=== PATIENT | female | born 1990 | race Caucasian/White ===

== ENCOUNTER 2017-12-15 18:28 | Emergency (ER) | payer OTHER ==
[2017-12-15] MEDS ORDERED: IBUPROFEN 400 MG TAB ONE (18:56)
--- NOTE | 2017-12-15 19:19 | EDPHYS ---
Physician Documentation [facility] Name: Mariluz Infante Age: 27 yrs Sex: Female : 1990 Arrival Date: 12/15/2017 Time: 18:31 Bed 15 Private MD: Frank Kaplan HPI: 12/15 18:53 This 27 yrs old Female presents to ER via Wheelchair with complaints of Foot cp Injury. 18:53 The patient presents with an injury, pain, that is acute. The complaints affect the cp dorsum of left foot. Context: resulted from foot being hyper extending after jumping in pool, the patient can partially bear weight, the patient is able to ambulate, with moderate difficulty. Onset: The symptoms/episode began/occurred today. Associated signs and symptoms: Pertinent negatives calf tenderness, numbness, tingling. 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 - Social history:: Smoking status: Patient uses tobacco products, smokes one pack cigarettes per day. ROS: 19:00 Constitutional: Negative for body aches, chills, fever, poor PO intake. cp 19:00 Eyes: Negative for injury, pain, redness, and discharge. cp 19:00 Neck: Negative for pain with movement, pain at rest, stiffness, tenderness, bony tenderness. 19:00 Back: Negative for pain at rest, pain with movement, radiated pain. 19:00 MS/extremity: Positive for injury or acute deformity, pain, tenderness, of the left foot, Negative for paresthesias. 19:00 Skin: Negative for cellulitis, rash. 19:00 All other systems are negative. Exam: 19:05 Constitutional: The patient appears in no acute distress, alert, awake, well developed, cp well nourished. 19:05 Head/Face: Normocephalic, atraumatic. cp 19:05 Eyes: Periorbital structures: appear normal, Conjunctiva: normal, no exudate, no injection, Lids and lashes: appear normal, bilaterally. 19:05 ENT: External ear(s): are unremarkable, Nose: is normal, Mouth: is normal. 19:05 Chest/axilla: Inspection: normal. 19:05 Cardiovascular: Rate: normal. 19:05 Respiratory: the patient does not display signs of respiratory distress, Respirations: normal, no use of accessory muscles, no retractions, no splinting, no tachypnea. 19:05 Abdomen/GI: Inspection: abdomen appears normal. 19:05 Musculoskeletal/extremity: Extremities: grossly normal except: noted in the left foot: pain, tenderness, There is no evidence of decreased ROM, deformity, Perfusion: the extremity is normally perfused throughout, Sensation intact. Vital Signs: 18:37 BP 125 / 81; Pulse 84; Resp 14; Temp 98.4; Pulse Ox 100% on R/A; Weight 70.31 kg; la1 Height 5 ft. 1 in. (154.94 cm); 19:30 BP 130 / 70; Pulse 80; Resp 18; Temp 97.8; Pulse Ox 99% ; ea 18:37 Body Mass Index 29.29 (70.31 kg, 154.94 cm) la1 Procedures: 20:05 Splinting: Splint applied to left foot using Orthoglass splint, applied by tech. cp Examined by me, post splint application: neurovascular intact, Patient tolerated well. 20:05 Crutch training provided to patient and/or family. Return demonstration given. cp MDM: 18:42 Patient medically screened. cp 19:17 Data reviewed: vital signs, nurses notes, radiologic studies, plain films. Test cp interpretation: by ED physician or midlevel provider: plain radiologic studies. Counseling: I had a detailed discussion with the patient and/or guardian regarding: the historical points, exam findings, and any diagnostic results supporting the discharge/admit diagnosis, radiology results, to return to the emergency department if symptoms worsen or persist or if there are any questions or concerns that arise at home. 12/15 18:37 Order name: Foot Left 3 View XRAY; Complete Time: 19:36 la1 12/15 19:37 Interpretation: Reviewed report. cp 12/15 19:08 Order name: Crutches; Complete Time: 19:33 cp 12/15 19:08 Order name: Post-op shoe; Complete Time: 19:33 cp 12/15 19:39 Order name: Splint: non-wt bearing posterior short leg; Complete Time: 20:05 cp Administered Medications: 19:03 Drug: Ibuprofen 800 mg Route: PO; ea 19:34 Follow up: Response: No adverse reaction ea 19:34 Follow up: Response: Pain is decreased ea Disposition: 12/15/17 19:40 Discharged to Home. Impression: Nondisplaced fracture of fourth metatarsal bone, left foot. - Condition is Stable. - Discharge Instructions: Metatarsal Fracture, Undisplaced. - Prescriptions for Ibuprofen 800 mg Oral Tablet - take 1 tablet by ORAL route every 8 hours As needed take with food; 30 tablet. Tylenol- Codeine #3 300-30 mg Oral Tablet - take 2 tablets by ORAL route every 6 hours As needed; 20 tablet. - Medication Reconciliation Form, Thank You Letter, Antibiotic Education, Prescription Opioid Use form. - Follow up: Vicente Mckee MD; When: 2 - 3 days; Reason: Recheck today's complaints. - Problem is new. - Symptoms have improved. Addendum: 12/17/2017 09:03 Co-signature as Attending Physician, Frank Toledo MD I agree with the assessment and c mata plan of care. Signatures: Dispatcher [employer] EDRI Frank Toledo MD MD cha Attema, Lee, RN RN la1 Frank Lincoln PA PA cp Antunez, Elena, RN MARIANNE dow
--- NOTE | 2017-12-15 19:19 | ER ---
Nurse's Notes [facility] Name: Mariluz Infante Age: 27 yrs Sex: Female : 1990 Arrival Date: 12/15/2017 Time: 18:31 Bed 15 Private MD: Diagnosis: Nondisplaced fracture of fourth metatarsal bone, left foot Presentation: 12/15 18:35 Presenting complaint: Patient states: I was getting in the pool and my left toes bent la1 up and back and now I am having a lot of pain in the area, CMS intact. Transition of care: patient was not received from another setting of care. Onset of symptoms was December 15, 2017. Initial Sepsis Screen: Does the patient meet any 2 criteria? No. Patient's initial sepsis screen is negative. Does the patient have a suspected source of infection? No. Patient's initial sepsis screen is negative. Care prior to arrival: None. 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 - Social history:: Smoking status: Patient uses tobacco products, smokes one pack cigarettes per day. Screenin:44 Abuse screen: Denies threats or abuse. Nutritional screening: No deficits noted. em Tuberculosis screening: No symptoms or risk factors identified. Fall Risk None identified. Assessment: 18:48 General: Appears in no apparent distress. uncomfortable, Behavior is calm, cooperative. em Pain: Complains of pain in dorsum of left foot Pain currently is 10 out of 10 on a pain scale. Pain began 2 hours ago. Neuro: Level of Consciousness is awake, alert, obeys commands, Oriented to person, place, time, situation. Cardiovascular: Capillary refill < 3 seconds Patient's skin is warm and dry. Respiratory: Airway is patent Respiratory effort is even, unlabored, Respiratory pattern is regular, symmetrical. GI: Abdomen is round. : No signs and/or symptoms were reported regarding the genitourinary system. EENT: No signs and/or symptoms were reported regarding the EENT system. Derm: Skin is intact, Skin is pink, warm \T\ dry. Musculoskeletal: Range of motion: intact in all extremities, Swelling present in dorsum of left foot. 19:14 Reassessment: Patient appears in no apparent distress at this time. I agree with above iw assessment by Oren Neri LVN. 19:15 General: Appears uncomfortable, Behavior is calm, cooperative. Pain: Complains of pain ea in left foot Pain currently is 9 out of 10 on a pain scale. Quality of pain is described as aching, Pain began 2 hours ago. Neuro: Level of Consciousness is awake, alert, obeys commands, Oriented to person, place, time, situation. Cardiovascular: Patient's skin is warm and dry. Respiratory: Airway is patent Respiratory effort is even, unlabored, Respiratory pattern is regular, symmetrical. GI: No signs and/or symptoms were reported involving the gastrointestinal system. : No signs and/or symptoms were reported regarding the genitourinary system. EENT: No signs and/or symptoms were reported regarding the EENT system. Derm: Skin is intact, Skin is pink, warm \T\ dry. Musculoskeletal: Swelling present in left foot. 19:55 Reassessment: Patient is alert, oriented x 3, equal unlabored respirations, skin ea warm/dry/pink. Discharge instructions given to patient, verbalized the understanding of instruction. Vital Signs: 18:37 BP 125 / 81; Pulse 84; Resp 14; Temp 98.4; Pulse Ox 100% on R/A; Weight 70.31 kg; la1 Height 5 ft. 1 in. (154.94 cm); 19:30 BP 130 / 70; Pulse 80; Resp 18; Temp 97.8; Pulse Ox 99% ; ea 18:37 Body Mass Index 29.29 (70.31 kg, 154.94 cm) la1 ED Course: 18:31 Patient arrived in ED. mr 18:36 Triage completed. la1 18:37 Arm band placed on left wrist. la1 18:42 Frank Lincoln PA is PHCP. cp 18:42 Frank Toledo MD is Attending Physician. cp 18:44 Oren Neri LVN is Primary Nurse. em 18:45 Patient has correct armband on for positive identification. Bed in low position. Call em light in reach. Adult w/ patient. 18:45 No provider procedures requiring assistance completed. em 19:11 X-ray completed. Portable x-ray completed in exam room. Patient tolerated procedure kp1 well. 19:12 Foot Left 3 View XRAY In Process Unspecified. EDMS 19:34 Patient did not have IV access during this emergency room visit. ea 19:39 Vicente cMkee MD is Referral Physician. cp Administered Medications: 19:03 Drug: Ibuprofen 800 mg Route: PO; ea 19:34 Follow up: Response: No adverse reaction ea 19:34 Follow up: Response: Pain is decreased ea Outcome: 19:18 Discharge ordered by MD. cp 19:40 Discharge ordered by MD. cp 20:11 Condition: improved ea 20:11 Discharge instructions given to patient, Instructed on discharge instructions, follow up and referral plans. medication usage, Demonstrated understanding of instructions, follow-up care, medications. 20:15 Patient left the ED. ea 20:15 Discharged to home with crutches, with friend. ea Signatures: Dispatcher [employer] [facility] Supriya Dyer mr Neri, Oren, LOCOMOTIVE ENGINEER ELECTRIC LOCOMOTIVE ENGINEER ELECTRIC Natasha Arevalo, RN Tyshawn Meléndez RN RN la1 Frank Lincoln, PA PA Peg Liang kp1 Maritza Weber RN RN ea
--- NOTE | 2017-12-15 19:25 | RAD REPORT ---
EXAM DESCRIPTION: RAD - Foot Left 3 View - 12/15/2017 7:12 pm CLINICAL HISTORY: Foot pain COMPARISON: None. FINDINGS: Hardware is noted in the distal first metatarsal. Lucency is seen the fourth metatarsal he ad, suspicious for nondisplaced fracture. No dislocation present. IMPRESSION: Findings suspicious for nondisplaced fracture fourth metatarsal head. Correlation with c linical point tenderness in this location is advised.
== END 2017-12-15 20:15 | disposition home or self-care (01) ==
LOC: ER 18:28
PROC: 2W3RX1Z Immobilization of Left Lower Leg using Splint (ICD-10-PCS; principal; 2017-12-15)
DX: S92.345A Nondisplaced fracture of fourth metatarsal bone, left foot, initial encounter for closed fracture (principal); W16.92XA Jumping or diving into unspecified water causing other injury, initial encounter; Y93.89 Activity, other specified; Y92.34 Swimming pool (public) as the place of occurrence of the external cause; Z88.8 Allergy status to other drugs, medicaments and biological substances; F17.210 Nicotine dependence, cigarettes, uncomplicated
CPT/HCPCS: 99283

== ENCOUNTER 2018-01-22 14:01 | Emergency (ER) | payer OTHER ==
[2018-01-22] MEDS ORDERED: ONDANSETRON 4 MG/2 ML VIAL ONE (14:44)
[2018-01-22] MEDS ORDERED: NA CHLORIDE 0.9% 1,000 ML ONE ×2 (14:44→17:02)
[2018-01-22 15:02] LABS: Absolute Lymphocytes (CBC) 0.4 K/uL (0.7-4.9); Absolute Monocytes 0.3 K/uL (0.1-1.3); Absolute Neutrophil 12.1 K/uL (1.8-8.0); Basophils % 0.2 % (0-1.3); Hematocrit 49.5 % (36.0-45.0); Lymphocytes % 2.9 % (15.3-44.8); MCH 27.7 pg (27.0-35.0); MCV 85.3 fL (80-100); MPV 8.3 fL (7.6-11.3); Monocytes % 2.6 % (3.3-12.3); RBC Red Blood Cell Count 5.81 M/uL (3.86-4.86)
[2018-01-22 15:10] LABS: Potassium 4.3 mEq/L (3.6-5.0)
[2018-01-22 15:16] LABS: Albumin 4.5 g/dL (3.2-5.5); Bilirubin Direct 0.1 mg/dL (0-0.2); Bilirubin Total 0.6 mg/dL (0.3-1.2); Protein, Total 8.2 g/dL (6.0-8.3)
[2018-01-22 15:32] LABS: Urine Bacteria NONE SEEN /HPF (<20); Urine Culture Reflex Order NOT NEEDED; Urine Mucus HEAVY /HPF (NONE SEEN); Urine RBC <5 /HPF (NONE SEEN)
[2018-01-22 15:35] LABS: Urine Blood TRACE (NEG); Urine Glucose NEGATIVE (NEG); Urine Protein 1+ (NEG); Urine Specific Gravity 1.025 (1.005-1.030)
[2018-01-22 15:42] LABS: Platelet Estimate ADEQ; Urine White Blood Cell Casts OK
[2018-01-22 15:43] LABS: Blood Morphology Comment NOT SEEN (NOT SEEN)
--- NOTE | 2018-01-22 16:08 | RAD REPORT ---
EXAM DESCRIPTION: CT - Abdomen Pelvis W Contrast - 01/22/2018 3:58 pm CLINICAL HISTORY: Abdominal pain with vomiting and diarrhea COMPARISON: January 2017 TECHNIQUE: Computed axial tomography of the abdomen pelvis was obtained. 100 cc Isovue-300 was admin istered intravenously. Oral contrast was not requested which limits evaluation of bowel. All CT scans are performed using dose optimization technique as appropriate and may include automated exposure control or mA/KV adjustment according to patient size. FINDINGS: The liver, spleen, pancreas, adrenal and kidneys appear unremarkable. There is no evidence of diverticulitis. The appendix is normal Fluid is present within nondilated large and small bowel IMPRESSION: Fluid is present within nondilated large and small bowel which may indicate an enteritis
[2018-01-22] MEDS ORDERED: MEPERIDINE HCL 25 MG/0.5 ML ONE (17:02)
--- NOTE | 2018-01-22 17:33 | EDPHYS ---
Physician Documentation [facility] Name: Mariluz Infante Age: 27 yrs Sex: Female : 1990 Arrival Date: 01/22/2018 Time: 14:05 Bed 26 Private MD: Out, [facility] ED Physician Renato Beltrán HPI: 01/22 14:43 This 27 yrs old Female presents to ER via Ambulatory with complaints of rn Nausea/Vomiting/Diarrhea, Dizziness. 14:43 The patient presents to the emergency department with nausea, vomiting, diarrhea. rn 14:45 Onset: The symptoms/episode began/occurred this morning. Possible causes: unknown. rn Associated signs and symptoms: Pertinent positives: abdominal pain, diarrhea, nausea, vomiting. Severity of symptoms: At their worst the symptoms were moderate in the emergency department the symptoms have improved. The patient has experienced similar episodes in the past. Reports mid abdominal pain, assoc with nausea/vomiting/diarrhea, began early this morning, no fever, has had hysterectomy due to endometriosis, feels lightheaded and unable to keep food down, hasn't eaten anything today. . 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 - Social history:: Smoking status: Patient uses tobacco products, smokes one-half pack cigarettes per day. - Ebola Screening: : No symptoms or risks identified at this time. - Family history:: not pertinent. - Hospitalizations: : No recent hospitalization is reported. ROS: 14:45 Constitutional: Negative for fever, chills, and weight loss, Eyes: Negative for injury, rn pain, redness, and discharge, Neck: Negative for injury, pain, and swelling, Cardiovascular: Negative for chest pain, palpitations, and edema, Respiratory: Negative for shortness of breath, cough, wheezing, and pleuritic chest pain, Abdomen/GI: + abd cramping/nausea/vomiting/diarrhea MS/Extremity: Negative for injury and deformity, Skin: Negative for injury, rash, and discoloration, Neuro: Negative for headache, numbness, tingling, and seizure. Exam: 14:45 Constitutional: This is a well developed, well nourished patient who is awake, alert, rn and in no acute distress. Head/Face: Normocephalic, atraumatic. Eyes: Pupils equal round and reactive to light, extra-ocular motions intact. Lids and lashes normal. Conjunctiva and sclera are non-icteric and not injected. Cornea within normal limits. Periorbital areas with no swelling, redness, or edema. ENT: dry MM Cardiovascular: tachycardic, regular Respiratory: Lungs have equal breath sounds bilaterally, clear to auscultation and percussion. No rales, rhonchi or wheezes noted. No increased work of breathing, no retractions or nasal flaring. Abdomen/GI: soft mild mid abd tenderness, no RLQ tenderness, no rebound/guarding Back: No spinal tenderness. No costovertebral tenderness. Full range of motion. MS/ Extremity: Pulses equal, no cyanosis. Neurovascular intact. Full, normal range of motion. Equal circumference. Neuro: Awake and alert, GCS 15, oriented to person, place, time, and situation. Cranial nerves II-XII grossly intact. Motor strength 5/5 in all extremities. Sensory grossly intact. Cerebellar exam normal. Normal gait. Vital Signs: 14:14 BP 110 / 68; Pulse 125; Resp 16 S; Temp 97.5(TE); Pulse Ox 97% on R/A; Weight 70.31 kg aa5 (R); Height 5 ft. 1 in. (154.94 cm) (R); Pain 7/10; 17:03 BP 132 / 75; Pulse 96; Resp 17; Pulse Ox 98% on R/A; rk2 17:30 BP 127 / 80; Pulse 93; Resp 17; Pulse Ox 100% on R/A; rk2 14:14 Body Mass Index 29.29 (70.31 kg, 154.94 cm) aa5 MDM: 14:21 Patient medically screened. rn 17:29 Differential diagnosis: Nonspecific abd pain, gastritis, viral gastroenteritis, rn gastroenteritis. Differential diagnosis: appendicitis, diverticulitis. Data reviewed: vital signs, nurses notes, lab test result(s), radiologic studies, CT scan, and as a result, I will discharge patient. Counseling: I had a detailed discussion with the patient and/or guardian regarding: the historical points, exam findings, and any diagnostic results supporting the discharge/admit diagnosis, lab results, radiology results, the need for outpatient follow up, to return to the emergency department if symptoms worsen or persist or if there are any questions or concerns that arise at home. Response to treatment: the patient's symptoms have mildly improved after treatment, and as a result, I will discharge patient. Special discussion: Based on the patient's Hx, exam, and Dx evaluation, there is no indication for emergent surgery or inpatient Tx. It is understood by the patient/guardian that if the Sx's persist or worsen they need to return immediately for re-evaluation. I discussed with the patient/guardian in detail that at this point there is no indication for admission to the hospital. It is understood, however, that if the symptoms persist or worsen the patient needs to return immediately for re-evaluation. 01/22 14:39 Order name: Amylase, Serum; Complete Time: 15:42 rn 01/22 14:39 Order name: Basic Metabolic Panel; Complete Time: 15:42 rn 01/22 14:39 Order name: CBC with Diff; Complete Time: 16:05 rn 01/22 14:39 Order name: Creatinine for Radiology; Complete Time: 15:42 rn 01/22 14:39 Order name: Hepatic Function; Complete Time: 15:42 rn 01/22 14:39 Order name: Lipase; Complete Time: 15:42 rn 01/22 14:39 Order name: Urine Microscopic Only; Complete Time: 15:42 rn 01/22 15:07 Order name: CBC Smear Scan; Complete Time: 16:05 EDMS 01/22 15:14 Order name: Urine Dipstick--Ancillary (enter results); Complete Time: 15:42 bd 01/22 15:14 Order name: Urine --Ancillary (enter results); Complete Time: 15:42 bd 01/22 15:43 Order name: CT Abd/Pelvis - W/Contrast: IV contrast only; Complete Time: 16:12 rn 01/22 14:39 Order name: Urine Test (obtain specimen); Complete Time: 15:12 rn 01/22 14:39 Order name: IV Saline Lock; Complete Time: 14:49 rn 01/22 14:39 Order name: Labs collected and sent; Complete Time: 14:49 rn 01/22 14:39 Order name: Urine Dipstick-Ancillary (obtain specimen); Complete Time: 15:12 rn Administered Medications: 14:48 Drug: Zofran 4 mg Route: IVP; Site: right antecubital; aj 17:52 Follow up: Response: No adverse reaction rk2 14:49 Drug: NS 0.9% 1000 ml Route: IV; Rate: 1000 ml; Site: right antecubital; aj 16:00 Follow up: Response: No adverse reaction; IV Status: Completed infusion rk2 17:06 Drug: Demerol 25 mg Route: IVP; Site: right antecubital; rk2 17:52 Follow up: Response: No adverse reaction rk2 17:06 Drug: NS 0.9% 1000 ml Route: IV; Rate: 1000 ml; Site: right antecubital; rk2 17:52 Follow up: Response: No adverse reaction; IV Status: Completed infusion rk2 Disposition: 01/22/18 17:32 Discharged to Home. Impression: Nausea and vomiting, Diarrhea, unspecified, Dehydration. - Condition is Stable. - Discharge Instructions: Dehydration, Adult, Diarrhea, Nausea and Vomiting, Viral Gastroenteritis. - Prescriptions for Zofran ODT 4 mg Oral tablet,disintegrating - place 1 tablet by TRANSLINGUAL route every 8-10 hours As needed; 20 tablet. - Medication Reconciliation Form, Thank You Letter, Antibiotic Education, Prescription Opioid Use form. - Follow up: Private Physician; When: As needed; Reason: Recheck today's complaints, Re-evaluation by your physician. - Problem is new. - Symptoms have improved. Signatures: Dispatcher [employer] EDMilagros March RN RN aj Nieto, Roman, MD MD rn Calderon, Audri, RN RN aa5 Lata Silveira RN RN rk2 Corrections: (The following items were deleted from the chart) 17:55 17:32 01/22/2018 17:32 Discharged to Home. Impression: Nausea and vomiting; Diarrhea, rk2 unspecified; Dehydration. Condition is Stable. Forms are Medication Reconciliation Form, Thank You Letter, Antibiotic Education, Prescription Opioid Use. Follow up: Private Physician; When: As needed; Reason: Recheck today's complaints, Re-evaluation by your physician. Problem is new. Symptoms have improved. rn
--- NOTE | 2018-01-22 17:33 | ER ---
Nurse's Notes [facility] Name: Mariluz Infante Age: 27 yrs Sex: Female : 1990 Arrival Date: 01/22/2018 Time: 14:05 Bed 26 Private MD: Out, [facility] Diagnosis: Nausea and vomiting;Diarrhea, unspecified;Dehydration Presentation: 01/22 14:12 Presenting complaint: Patient states: N/V/D, dizziness since this morning. Pt states aa5 "my whole body hurts". Transition of care: patient was not received from another setting of care. Onset of symptoms was January 22, 2018. Risk Assessment: Do you want to hurt yourself or someone else? Patient reports no desire to harm self or others. Initial Sepsis Screen: Does the patient meet any 2 criteria? No. Patient's initial sepsis screen is negative. Does the patient have a suspected source of infection? No. Patient's initial sepsis screen is negative. Care prior to arrival: None. 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 - Social history:: Smoking status: Patient uses tobacco products, smokes one-half pack cigarettes per day. - Ebola Screening: : No symptoms or risks identified at this time. - Family history:: not pertinent. - Hospitalizations: : No recent hospitalization is reported. Screenin:50 Abuse screen: Denies threats or abuse. Denies injuries from another. Nutritional aj screening: No deficits noted. Tuberculosis screening: No symptoms or risk factors identified. Fall Risk None identified. Assessment: 14:50 General: Appears in no apparent distress. comfortable, Behavior is calm, cooperative, aj appropriate for age. Pain: Denies pain. Neuro: Level of Consciousness is awake, alert, obeys commands, Oriented to person, place, time, situation, Appropriate for age. Respiratory: Airway is patent Trachea midline Respiratory effort is even, unlabored, Respiratory pattern is regular, symmetrical. GI: Abdomen is flat, non-distended, Reports nausea. Derm: Skin is intact, is healthy with good turgor, Skin is pink, warm \\T\\ dry. normal. Musculoskeletal: Reports Body aches. 17:05 Reassessment: Pt. resting in room \\T\\ this time, appears to be in no obvious distress... rk2 iv fluids infusing. Friend \\T\\ bedside. No other needs voiced \\T\\ this time. Vital Signs: 14:14 BP 110 / 68; Pulse 125; Resp 16 S; Temp 97.5(TE); Pulse Ox 97% on R/A; Weight 70.31 kg aa5 (R); Height 5 ft. 1 in. (154.94 cm) (R); Pain 7/10; 17:03 BP 132 / 75; Pulse 96; Resp 17; Pulse Ox 98% on R/A; rk2 17:30 BP 127 / 80; Pulse 93; Resp 17; Pulse Ox 100% on R/A; rk2 14:14 Body Mass Index 29.29 (70.31 kg, 154.94 cm) aa5 ED Course: 14:05 Patient arrived in ED. sb2 14:05 Out, [facility] is Private Physician. sb2 14:13 Triage completed. aa5 14:13 Arm band placed on. aa5 14:16 Milagros Khan, RN is Primary Nurse. aj 14:21 Renato Beltrán MD is Attending Physician. rn 14:50 Patient has correct armband on for positive identification. aj 14:50 No provider procedures requiring assistance completed. Inserted saline lock: 22 gauge aj in right antecubital area, using aseptic technique. Blood collected. 15:[address] via wheelchair. vm2 15:58 CT Abd/Pelvis - W/Contrast: IV contrast only In Process Unspecified. EDMS 16:00 CT completed. Patient tolerated procedure well. Patient moved back from [place]. nj 17:54 IV discontinued. rk2 Administered Medications: 14:48 Drug: Zofran 4 mg Route: IVP; Site: right antecubital; aj 17:52 Follow up: Response: No adverse reaction rk2 14:49 Drug: NS 0.9% 1000 ml Route: IV; Rate: 1000 ml; Site: right antecubital; aj 16:00 Follow up: Response: No adverse reaction; IV Status: Completed infusion rk2 17:06 Drug: Demerol 25 mg Route: IVP; Site: right antecubital; rk2 17:52 Follow up: Response: No adverse reaction rk2 17:06 Drug: NS 0.9% 1000 ml Route: IV; Rate: 1000 ml; Site: right antecubital; rk2 17:52 Follow up: Response: No adverse reaction; IV Status: Completed infusion rk2 Outcome: 17:32 Discharge ordered by . rn 17:54 Discharged to home ambulatory, with friend. rk2 17:54 Condition: good 17:54 Discharge instructions given to patient, Prescriptions given X 1. 17:55 Patient left the ED. rk2 Signatures: Dispatcher [employer] EDMilagros March RN RN Renato Bowsre MD MD rn Calderon, Audri, RN RN Sacha Tuttle Victoria vm2 Lata Silveira RN RN rk2 Sally Aguilar sb2
== END 2018-01-22 17:55 | disposition home or self-care (01) ==
LOC: ER 14:01
DX: E86.0 Dehydration (principal); R19.7 Diarrhea, unspecified; F17.210 Nicotine dependence, cigarettes, uncomplicated; Z88.8 Allergy status to other drugs, medicaments and biological substances
CPT/HCPCS: 36415; 74177; 80048; 80076; 81003; 81015; 81025; 82150; 83690; 85025; 96361; 96374; 96375; 99284; J2175; J2405; J7030; Q9967

== ENCOUNTER 2018-03-08 16:34 | Emergency (ER) | payer OTHER, SELFPAY ==
[2018-03-08] MEDS ORDERED: NA CHLORIDE 0.9% 1,000 ML ONE (17:48)
[2018-03-08 17:54] LABS: Absolute Lymphocytes (CBC) 3.5 K/uL (0.7-4.9); Absolute Monocytes 0.5 K/uL (0.1-1.3); Absolute Neutrophil 5.7 K/uL (1.8-8.0); Eosinophils % 1.2 % (0-4.4); Hematocrit 41.9 % (36.0-45.0); MCH 28.8 pg (27.0-35.0); MCV 84.5 fL (80-100); MPV 8.3 fL (7.6-11.3); Monocytes % 5.5 % (3.3-12.3); RBC Red Blood Cell Count 4.95 M/uL (3.86-4.86)
--- NOTE | 2018-03-08 17:58 | RAD REPORT ---
EXAM DESCRIPTION: CT - Head Brain Wo Cont - 03/08/2018 5:46 pm CLINICAL HISTORY: Syncope, hypotension, dizziness COMPARISON: CT head September 2017 TECHNIQUE: Axial 5 mm thick images of the head were obtained without IV contrast. All CT scans are performed using dose optimization technique as appropriate and may include automated exposure control or mA/KV adjustment according to patient size. FINDINGS: No intracranial hemorrhage, mass, edema or shift of mid-line structures. No acute infarcti on changes seen. No abnormal extra-axial fluid collections. Ventricles are normal. Intracranial findi ngs are not clearly different from the comparison. Mastoid air cells and visualized portions of the paranasal sinuses are clear. No acute bony findings. IMPRESSION: Negative noncontrast CT head for acute finding. No significant change from September 2017.
[2018-03-08 18:21] LABS: Magnesium 2.1 mg/dL (1.8-2.4); Potassium 3.5 mmol/L (3.5-5.1); Thyroid Stimulating Hormone 1.51 uIU/mL (0.36-3.74)
--- NOTE | 2018-03-08 18:47 | EKG ---
Test Date: 2018-03-08 Test Time: 17:21:08 Inclusion Special Education Teacher: RENA MEASUREMENT RESULTS: Intervals: Rate: 67 [place]: 148 QRSD: 84 QT: 388 QTc: 409 [place]: P: 23 [place]: 148 QRS: 30 T: 25 INTERPRETIVE STATEMENTS: Normal sinus rhythm with sinus arrhythmia Normal ECG No previous ECG available for comparison Electronically Signed On 03-08-18 18:47:01 CDT by Abelino Hanson
--- NOTE | 2018-03-08 18:52 | RAD REPORT ---
EXAM DESCRIPTION: RAD - Chest Single View - 03/08/2018 5:51 pm CLINICAL HISTORY: Chest pain COMPARISON: None. TECHNIQUE: AP portable chest image was obtained 1737 hours . FINDINGS: Lungs are clear. Heart and vasculature are normal. No measurable pleural effusion and no p neumothorax. No gross bony abnormality seen. No acute aortic findings suspected. IMPRESSION: No acute cardiopulmonary process.
--- NOTE | 2018-03-08 18:57 | ER ---
Nurse's Notes [facility] Name: Mariluz Infante Age: 27 yrs Sex: Female : 1990 Arrival Date: 03/08/2018 Time: 16:37 Bed 5 Private MD: Out, [facility] Diagnosis: Palpitations;Syncope and collapse;Vasovagal reaction Presentation: 03/08 17:07 Presenting complaint: Patient states: I get very lightheaded and dizzy when I stand and jl7 walk. My BP was 104/42 at the doctor and they had me sit a while then re-checked it and it was 108/70. At home I laid down for a bit and then got up and passed out when I stood up. When I stand up it's like I can feel my BP drop. Transition of care: patient was not received from another setting of care. Onset of symptoms was March 08, 2018. Risk Assessment: Do you want to hurt yourself or someone else? Patient reports no desire to harm self or others. Initial Sepsis Screen: Does the patient meet any 2 criteria? No. Patient's initial sepsis screen is negative. Does the patient have a suspected source of infection? No. Patient's initial sepsis screen is negative. Care prior to arrival: None. 17:07 Method Of Arrival: Ambulatory jl7 17:07 Acuity: ROGELIO 3 jl7 17:13 Presenting complaint: Patient states: Pt also reports palpitations since last night and jl7 "I have to cough to get them to go away.". Triage Assessment: 17:13 General: Appears in no apparent distress. uncomfortable, Behavior is calm, cooperative, jl7 appropriate for age. Pain: Denies pain. 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 - Social history:: Smoking status: Patient uses tobacco products, smokes one-half pack cigarettes per day. - Ebola Screening: : No symptoms or risks identified at this time. - Family history:: not pertinent. - Hospitalizations: : No recent hospitalization is reported. Screenin:01 Abuse screen: Denies threats or abuse. Nutritional screening: No deficits noted. tw2 Tuberculosis screening: No symptoms or risk factors identified. Fall Risk None identified. Assessment: 17:30 General: Appears in no apparent distress. Behavior is calm, cooperative. Pain:. Neuro: hb Level of Consciousness is awake, alert, obeys commands, Oriented to person, place, time, situation, Pupils are PERRLA. Cardiovascular: Heart tones S1 S2 present Capillary refill < 3 seconds Patient's skin is warm and dry. Respiratory: Airway is patent Trachea midline Respiratory effort is even, unlabored, Respiratory pattern is regular, symmetrical, Breath sounds are clear bilaterally. GI: No signs and/or symptoms were reported involving the gastrointestinal system. : No signs and/or symptoms were reported regarding the genitourinary system. EENT: No signs and/or symptoms were reported regarding the EENT system. Derm: No signs and/or symptoms reported regarding the dermatologic system. Skin is intact, is healthy with good turgor, Skin is pink, warm \\T\\ dry. Musculoskeletal: No signs and/or symptoms reported regarding the musculoskeletal system. 18:00 Reassessment: Patient appears in no apparent distress at this time. No changes from tw2 previously documented assessment. Patient and/or family updated on plan of care and expected duration. Pain level reassessed. Patient is alert, oriented x 3, equal unlabored respirations, skin warm/dry/pink. 18:34 Reassessment: Patient appears in no apparent distress at this time. No changes from hb previously documented assessment. Patient and/or family updated on plan of care and expected duration. Pain level reassessed. Patient is alert, oriented x 3, equal unlabored respirations, skin warm/dry/pink. 18:59 Reassessment: RECD REPORT FROM NOLVIA LOPES. 27YO WF P/W PALPITATIONS AND ANXIETY. D/C bp PENDING COMPLETION OF IVF. 19:19 Reassessment: PT D/C HOME AMBULATORY, DX WITH PALPITATIONS AND VASOVAGAL RESPONSE. bp Vital Signs: 17:13 BP 106 / 76; Pulse 86; Resp 16 S; Temp 99(O); Pulse Ox 97% on R/A; Weight 69.85 kg (R); jl7 Height 5 ft. 1 in. (154.94 cm) (R); Pain 0/10; 17:58 BP 117 / 70 Standing; Pulse 92; Resp 24; Pulse Ox 99% on R/A; tw2 17:58 BP 116 / 70 Sitting; Pulse 63; Resp 17; tw2 17:58 BP 116 / 70 Supine; Pulse 63; tw2 18:34 BP 98 / 58; Pulse 66; Resp 15; Pulse Ox 100% on R/A; hb 19:00 BP 103 / 55; Pulse 65; Resp 17; Pulse Ox 99% on R/A; tl2 19:20 BP 118 / 74; Pulse 63; Resp 20; Pulse Ox 98% ; bp 17:13 Body Mass Index 29.10 (69.85 kg, 154.94 cm) jl7 ED Course: 16:37 Patient arrived in ED. mr 16:37 Out, [facility] is Private Physician. mr 17:11 Triage completed. jl7 17:13 Arm band placed on left wrist. jl7 17:20 Placed in gown. Bed in low position. residential monitor on. Pulse ox on. NIBP on. tw2 17:24 Renato Beltrán MD is Attending Physician. rn 17:28 EKG done, by pharm tech. reviewed by Renato Beltrán MD. sm3 17:31 Initial lab(s) drawn, by ny. Inserted saline lock: 22 gauge in right antecubital area, jb1 using aseptic technique. Blood collected. 17:40 CT completed. Patient tolerated procedure well. Patient moved to CT. Patient moved back mn from CT. 17:46 Nolvia Leonard, RN is Primary Nurse. hb 17:47 CT Head Brain wo Cont In Process Unspecified. EDMS 17:50 X-ray completed. Patient tolerated procedure well. bb2 17:51 XRAY Chest (1 view) In Process Unspecified. EDMS 17:51 Patient moved back from radiology. bb2 18:01 No provider procedures requiring assistance completed. tw2 19:01 Report given to MARIANNE Hayden , awaiting completion of IV fluids prior to discharge. tw2 19:19 IV discontinued, intact, bleeding controlled, No redness/swelling at site. Pressure bp dressing applied. Administered Medications: 18:02 Drug: NS 0.9% 1000 ml Route: IV; Rate: 1000 ml; Site: right antecubital; tw2 19:20 Follow up: IV Status: Completed infusion; IV Intake: 1000ml bp Intake: 19:20 IV: 1000ml; Total: 1000ml. bp Outcome: 18:56 Discharge ordered by MD. rn 19:20 Discharged to home ambulatory. bp 19:20 Condition: stable 19:20 Discharge instructions given to patient, Instructed on discharge instructions, follow up and referral plans. Demonstrated understanding of instructions, follow-up care. 19:21 Patient left the ED. bp Signatures: Dispatcher [employer] EDMS Pete Pena jb1 Supriya Dyer Roman, MD MD rn Baxter, Heather, RN RN Tracey Tirado RN RN tw2 Nai Wong RN RN tl2 Sacha Woodard Jahala RN RN jl7 Sohail Curtis RN RN [facility] CenterJoellen 2 Harriett Hooks 3
--- NOTE | 2018-03-08 18:57 | EDPHYS ---
Physician Documentation [facility] Name: Mariluz Infante Age: 27 yrs Sex: Female : 1990 Arrival Date: 03/08/2018 Time: 16:37 Bed 5 Private MD: Out, [facility] ED Physician Renato Beltrán HPI: 03/08 17:55 This 27 yrs old Female presents to ER via Ambulatory with complaints of rn Palpitations, Passed Out Prior To Arrival. 17:56 The patient has experienced syncope. Onset: The symptoms/episode began/occurred just rn prior to arrival. Duration: This was a single episode. Associated signs and symptoms: Pertinent positives: lightheadedness, palpitations. Current symptoms: Currently, the patient is not experiencing any symptoms. The patient has not experienced similar symptoms in the past. The patient has been recently seen by a physician:. Seen today at [place] [facility], jeannette dher blood pressure was low, improved with rest, sent her home, reports palpitations since last night, intermittent, last for about 1 minute, continued to happen today, at home, felt nausea, then got lightheaded and passed out, single episode, currently asymptomatic. . 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 - Social history:: Smoking status: Patient uses tobacco products, smokes one-half pack cigarettes per day. - Ebola Screening: : No symptoms or risks identified at this time. - Family history:: not pertinent. - Hospitalizations: : No recent hospitalization is reported. ROS: 17:56 Constitutional: Negative for fever, chills, and weight loss, Eyes: Negative for injury, rn pain, redness, and discharge, Neck: Negative for injury, pain, and swelling, Cardiovascular: Negative for edema, Respiratory: Negative for shortness of breath, cough, wheezing, and pleuritic chest pain, Abdomen/GI: Negative for abdominal pain, nausea, vomiting, diarrhea, and constipation, MS/Extremity: Negative for injury and deformity, Skin: Negative for injury, rash, and discoloration, Neuro: Negative for headache, weakness, numbness, tingling, and seizure. Exam: 17:56 Constitutional: This is a well developed, well nourished patient who is awake, alert, rn and in no acute distress. Head/Face: Normocephalic, atraumatic. Eyes: Pupils equal round and reactive to light, extra-ocular motions intact. Lids and lashes normal. Conjunctiva and sclera are non-icteric and not injected. Cornea within normal limits. Periorbital areas with no swelling, redness, or edema. ENT: MMM Neck: Trachea midline, no thyromegaly or masses palpated, and no cervical lymphadenopathy. Supple, full range of motion without nuchal rigidity, or vertebral point tenderness. No Meningismus. Cardiovascular: Regular rate and rhythm with a normal S1 and S2. No gallops, murmurs, or rubs. Normal PMI, no JVD. No pulse deficits. Respiratory: Lungs have equal breath sounds bilaterally, clear to auscultation and percussion. No rales, rhonchi or wheezes noted. No increased work of breathing, no retractions or nasal flaring. Abdomen/GI: Soft, non-tender, with normal bowel sounds. No distension or tympany. No guarding or rebound. No evidence of tenderness throughout. Skin: Warm, dry with normal turgor. Normal color with no rashes, no lesions, and no evidence of cellulitis. MS/ Extremity: Pulses equal, no cyanosis. Neurovascular intact. Full, normal range of motion. Equal circumference. Neuro: Awake and alert, GCS 15, oriented to person, place, time, and situation. Cranial nerves II-XII grossly intact. Motor strength 5/5 in all extremities. Sensory grossly intact. Cerebellar exam normal. Normal gait. Vital Signs: 17:13 BP 106 / 76; Pulse 86; Resp 16 S; Temp 99(O); Pulse Ox 97% on R/A; Weight 69.85 kg (R); jl7 Height 5 ft. 1 in. (154.94 cm) (R); Pain 0/10; 17:58 BP 117 / 70 Standing; Pulse 92; Resp 24; Pulse Ox 99% on R/A; tw2 17:58 BP 116 / 70 Sitting; Pulse 63; Resp 17; tw2 17:58 BP 116 / 70 Supine; Pulse 63; tw2 18:34 BP 98 / 58; Pulse 66; Resp 15; Pulse Ox 100% on R/A; hb 19:00 BP 103 / 55; Pulse 65; Resp 17; Pulse Ox 99% on R/A; tl2 19:20 BP 118 / 74; Pulse 63; Resp 20; Pulse Ox 98% ; bp 17:13 Body Mass Index 29.10 (69.85 kg, 154.94 cm) jl7 MDM: 17:24 Patient medically screened. rn 18:55 Differential Diagnosis: cardiac arrhythmia, idiopathic syncope, vasovagal episode. Data rn reviewed: vital signs, nurses notes, lab test result(s), EKG, radiologic studies, and as a result, I will discharge patient. Counseling: I had a detailed discussion with the patient and/or guardian regarding: the historical points, exam findings, and any diagnostic results supporting the discharge/admit diagnosis, lab results, radiology results, the need for outpatient follow up, to return to the emergency department if symptoms worsen or persist or if there are any questions or concerns that arise at home. Response to treatment: the patient's condition has returned to base line, the patient is now symptom free, and as a result, I will discharge patient. Special discussion: I discussed with the patient/guardian in detail that at this point there is no indication for admission to the hospital. It is understood, however, that if the symptoms persist or worsen the patient needs to return immediately for re-evaluation. Based on the history and exam findings, there is no indication for further emergent testing or inpatient evaluation. I discussed with the patient/guardian the need to see the pressroom worker for further evaluation of the symptoms. I discussed with the patient/guardian the need to see the primary care provider for further evaluation of the symptoms. ED course: Will dc home, normal w/u here, improved symptoms, intermittentsymptoms, recommend pcp f/u, possible holter, and cardiology if continues, return precautions given.. 03/08 17:35 Order name: Basic Metabolic Panel; Complete Time: 18:32 rn 07/20 17:35 Order name: CBC with Diff; Complete Time: 18:32 rn 03/08 17:35 Order name: Magnesium; Complete Time: 18:32 rn 03/08 17:35 Order name: Troponin (emerg Dept Use Only); Complete Time: 18:32 rn 03/08 17:35 Order name: TSH; Complete Time: 18:32 rn 03/08 17:35 Order name: T4 Free; Complete Time: 18:32 rn 03/08 17:35 Order name: CT Head Brain wo Cont; Complete Time: 18:32 rn 03/08 17:35 Order name: EKG; Complete Time: 17:36 rn 03/08 17:35 Order name: Cardiac monitoring; Complete Time: 17:44 rn 03/08 17:35 Order name: EKG - Nurse/Tech; Complete Time: 18:03 03/08 17:35 Order name: XRAY Chest (1 view); Complete Time: 18:55 03/08 19:17 Order name: Urine Dipstick--Ancillary (enter results) [facility] 03/08 19:17 Order name: Urine --Ancillary (enter results) [facility] 03/08 17:35 Order name: IV Saline Lock; Complete Time: 17:44 rn 03/08 17:35 Order name: Labs collected and sent; Complete Time: 17:45 03/08 17:35 Order name: NPO; Complete Time: 17:45 03/08 17:35 Order name: O2 Per Protocol; Complete Time: 17:45 03/08 17:35 Order name: O2 Sat Monitoring; Complete Time: 17:45 03/08 17:35 Order name: Urine Dipstick-Ancillary (obtain specimen); Complete Time: 18:45 03/08 17:35 Order name: Orthostatics; Complete Time: 18:02 rn Administered Medications: 18:02 Drug: NS 0.9% 1000 ml Route: IV; Rate: 1000 ml; Site: right antecubital; tw2 19:20 Follow up: IV Status: Completed infusion; IV Intake: 1000ml bp Disposition: 03/08/18 18:56 Discharged to Home. Impression: Palpitations, Syncope and collapse, Vasovagal reaction. - Condition is Stable. - Discharge Instructions: Palpitations, Syncope, Vasovagal Syncope, Adult. - Medication Reconciliation Form, Thank You Letter, Antibiotic Education, Prescription Opioid Use form. - Follow up: Private Physician; When: As needed; Reason: Recheck today's complaints, Re-evaluation by your physician. - Problem is new. - Symptoms have improved. Signatures: Dispatcher [employer] EDMS Renato Beltrán MD MD rn Wise, Tara, RN RN tw2 Natividad Ly RN RN jl7 Sohail Curtis RN RN bp Corrections: (The following items were deleted from the chart) 19:21 18:56 03/08/2018 18:56 Discharged to Home. Impression: Palpitations; Syncope and bp collapse; Vasovagal reaction. Condition is Stable. Forms are Medication Reconciliation Form, Thank You Letter, Antibiotic Education, Prescription Opioid Use. Follow up: Private Physician; When: As needed; Reason: Recheck today's complaints, Re-evaluation by your physician. Problem is new. Symptoms have improved. rn
[2018-03-08 19:20] LABS: Urine Blood NEGATIVE (NEG); Urine Glucose NEGATIVE (NEG); Urine Protein NEGATIVE (NEG)
== END 2018-03-08 19:21 | disposition home or self-care (01) ==
LOC: ER 16:34
DX: R55 Syncope and collapse (principal); F32.9 Major depressive disorder, single episode, unspecified; F43.10 Post-traumatic stress disorder, unspecified; F17.210 Nicotine dependence, cigarettes, uncomplicated; Z88.8 Allergy status to other drugs, medicaments and biological substances
CPT/HCPCS: 36415; 70450; 71045; 80048; 81003; 81025; 83735; 84439; 84443; 84484; 85025; 93005; 96360; 99285; J7030

== ENCOUNTER 2018-06-28 12:21 | Emergency (ER) | payer OTHER ==
--- NOTE | 2018-06-28 15:02 | EDPHYS ---
Physician Documentation [facility] Name: Mariluz Infante Age: 28 yrs Sex: Female : 1990 Arrival Date: 06/28/2018 Time: 12:23 Bed 12 Private MD: Out, [facility] ED Physician Frank Toledo HPI: 06/28 14:56 This 28 yrs old Female presents to ER via Ambulatory with complaints of jr8 Insect Bite, Headache, Nausea. 14:56 Patient felt a bite on right elbow last night. Saw small pustule with redness last jr8 night. Today turned into blister. Had mild headache. Denies fever or other lesions to body . Severity of symptoms: At their worst the symptoms were mild in the emergency department the symptoms are unchanged. The patient has not experienced similar symptoms in the past. The patient has not recently seen a physician. 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 - Social history:: Smoking status: Patient uses tobacco products, smokes one-half pack cigarettes per day. - Ebola Screening: : Patient negative for fever greater than or equal to 101.5 degrees Fahrenheit, and additional compatible Ebola Virus Disease symptoms Patient denies exposure to infectious person Patient denies travel to an Ebola-affected area in the 21 days before illness onset No symptoms or risks identified at this time. ROS: 14:56 Constitutional: Negative for fever, chills, and weight loss. jr8 14:56 Skin: Positive for lesions. 14:56 Neuro: Positive for headache, Negative for altered mental status, dizziness, syncope. 14:56 All other systems are negative. Exam: 14:56 Eyes: Pupils equal round and reactive to light, extra-ocular motions intact. Lids and jr8 lashes normal. Conjunctiva and sclera are non-icteric and not injected. Cornea within normal limits. Periorbital areas with no swelling, redness, or edema. ENT: Nares patent. No nasal discharge, no septal abnormalities noted. Tympanic membranes are normal and external auditory canals are clear. Oropharynx with no redness, swelling, or masses, exudates, or evidence of obstruction, uvula midline. Mucous membranes moist. Neck: Trachea midline, no thyromegaly or masses palpated, and no cervical lymphadenopathy. Supple, full range of motion without nuchal rigidity, or vertebral point tenderness. No Meningismus. Cardiovascular: Regular rate and rhythm with a normal S1 and S2. No gallops, murmurs, or rubs. Normal PMI, no JVD. No pulse deficits. Respiratory: Lungs have equal breath sounds bilaterally, clear to auscultation and percussion. No rales, rhonchi or wheezes noted. No increased work of breathing, no retractions or nasal flaring. Abdomen/GI: Soft, non-tender, with normal bowel sounds. No distension or tympany. No guarding or rebound. No evidence of tenderness throughout. Back: No spinal tenderness. No costovertebral tenderness. Full range of motion. MS/ Extremity: Pulses equal, no cyanosis. Neurovascular intact. Full, normal range of motion. Neuro: Awake and alert, GCS 15, oriented to person, place, time, and situation. Cranial nerves II-XII grossly intact. Motor strength 5/5 in all extremities. Sensory grossly intact. Cerebellar exam normal. Normal gait. 14:56 Skin: small 1.5 cm red circular lesion to right forearm near elbow. In the center is small bullous. No streaking or surrounding cellulitis. No tenderness. No other rashes or lesion appreciated . Vital Signs: 12:30 BP 123 / 79; Pulse 81; Resp 20; Temp 99.0; Pulse Ox 99% on R/A; Weight 72.57 kg; Height aj 5 ft. 1 in. (154.94 cm); 14:23 BP 120 / 80; Pulse 79; Resp 18; Temp 98.9; Pulse Ox 100% on R/A; Pain 5/10; dm5 12:30 Body Mass Index 30.23 (72.57 kg, 154.94 cm) aj MDM: 14:35 Patient medically screened. jr8 14:56 Data reviewed: vital signs, nurses notes, and as a result, I will discharge patient. jr8 Data interpreted: Pulse oximetry: on room air is 100 %. Interpretation: normal. Counseling: I had a detailed discussion with the patient and/or guardian regarding: the historical points, exam findings, and any diagnostic results supporting the discharge/admit diagnosis, the need for outpatient follow up, a family practitioner, to return to the emergency department if symptoms worsen or persist or if there are any questions or concerns that arise at home. Administered Medications: No medications were administered Disposition: 06/28/18 15:00 Discharged to Home. Impression: Local infection of the skin and subcutaneous tissue, unspecified. - Condition is Stable. - Discharge Instructions: Rash, Cellulitis, Adult, [id number]. - Prescriptions for Bactroban 2 % Topical Ointment - Apply to affected area 1 application by TOPICAL route every 12 hours; 30 gram. - Medication Reconciliation Form, Thank You Letter, Antibiotic Education, Prescription Opioid Use form. - Follow up: Private Physician; When: As needed; Reason: Recheck today's complaints, Continuance of care, Re-evaluation by your physician. - Problem is new. - Symptoms have improved. Addendum: 07/01/2018 06:46 Co-signature as Attending Physician, Frank Toledo MD I agree with the assessment and c mata plan of care. Signatures: Kendra Maguire, Milagros Nichole RN, RN RN aj Anderson, Corey, MD MD cha Roszak, Josh, PA PA jr8 Corrections: (The following items were deleted from the chart) 06/28 15:14 15:00 06/28/2018 15:00 Discharged to Home. Impression: Local infection of the skin and dm5 subcutaneous tissue, unspecified. Condition is Stable. Forms are Medication Reconciliation Form, Thank You Letter, Antibiotic Education, Prescription Opioid Use. Follow up: Private Physician; When: As needed; Reason: Recheck today's complaints, Continuance of care, Re-evaluation by your physician. Problem is new. Symptoms have improved. jr8
--- NOTE | 2018-06-28 15:02 | ER ---
Nurse's Notes [facility] Name: Mariluz Infante Age: 28 yrs Sex: Female : 1990 Arrival Date: 06/28/2018 Time: 12:23 Bed 12 Private MD: Out, [facility] Diagnosis: Local infection of the skin and subcutaneous tissue, unspecified Presentation: 06/28 12:28 Presenting complaint: Patient states: Area of redness to posterior right elbow since aj this AM. Reports nausea and headache as well. Transition of care: patient was not received from another setting of care. Onset of symptoms was June 28, 2018. Risk Assessment: Do you want to hurt yourself or someone else? Patient reports no desire to harm self or others. Initial Sepsis Screen: Does the patient meet any 2 criteria? No. Patient's initial sepsis screen is negative. Does the patient have a suspected source of infection? No. Patient's initial sepsis screen is negative. Note Patient presents to ER with minor child. Care prior to arrival: None. 12:28 Method Of Arrival: Ambulatory 12:28 Acuity: ROGELIO 5 aj Triage Assessment: 12:30 Bite description: bite sustained to right elbow by. General: Appears in no apparent aj distress. comfortable, Behavior is calm, cooperative, appropriate for age. Pain: Complains of pain in right elbow. Neuro: Level of Consciousness is awake, alert, obeys commands, Oriented to person, place, time, situation, Appropriate for age. Respiratory: Airway is patent Respiratory effort is even, unlabored, Respiratory pattern is regular, symmetrical. Derm: Skin is intact, is healthy with good turgor, Skin is pink, warm \T\ dry. normal. Injury Description: area of redness to posterior right elbow. 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 - Social history:: Smoking status: Patient uses tobacco products, smokes one-half pack cigarettes per day. - Ebola Screening: : Patient negative for fever greater than or equal to 101.5 degrees Fahrenheit, and additional compatible Ebola Virus Disease symptoms Patient denies exposure to infectious person Patient denies travel to an Ebola-affected area in the 21 days before illness onset No symptoms or risks identified at this time. Screenin:23 Abuse screen: Denies threats or abuse. Denies injuries from another. Nutritional dm5 screening: No deficits noted. Tuberculosis screening: No symptoms or risk factors identified. Fall Risk None identified. Assessment: 14:23 Reassessment: Patient appears in no apparent distress at this time. Patient and/or dm5 family updated on plan of care and expected duration. Pain level reassessed. Patient is alert, oriented x 3, equal unlabored respirations, skin warm/dry/pink. General: Appears in no apparent distress. Behavior is calm, cooperative. Pain: Complains of pain in right elbow Pain currently is 5 out of 10 on a pain scale. Quality of pain is described as burning, itching Pain began 1 day ago. Is continuous. Neuro: Level of Consciousness is awake, alert, obeys commands, Oriented to person, place, time. Cardiovascular: No deficits noted. Respiratory: No deficits noted. GI: No deficits noted. : No deficits noted. Derm: Skin is pink, warm \T\ dry. Abscess located on right elbow is dime sized, is red, is raised, blister type area in the middle of the area. Vital Signs: 12:30 BP 123 / 79; Pulse 81; Resp 20; Temp 99.0; Pulse Ox 99% on R/A; Weight 72.57 kg; Height aj 5 ft. 1 in. (154.94 cm); 14:23 BP 120 / 80; Pulse 79; Resp 18; Temp 98.9; Pulse Ox 100% on R/A; Pain 5/10; dm5 12:30 Body Mass Index 30.23 (72.57 kg, 154.94 cm) aj ED Course: 12:23 Patient arrived in ED. mr 12:24 Out, of [facility] is Private Physician. mr 12:30 Triage completed. aj 12:30 Arm band placed on left wrist. Patient placed in waiting room, Patient notified of wait aj time. 14:22 Kendra Maguire, RN is Primary Nurse. dm5 14:23 Patient has correct armband on for positive identification. Call light in reach. dm5 14:31 Deyvi Shaikh PA is PHCP. jr8 14:31 Frank Toledo MD is Attending Physician. jr8 Administered Medications: No medications were administered Outcome: 15:00 Discharge ordered by . jr8 15:14 Patient left the ED. dm5 Signatures: Kendra Maguire, MARIANNE RN Milagros Anguiano RN RN aj Rivera, Mary mr Deyvi Shaikh PA PA jrSamanta
== END 2018-06-28 15:14 | disposition home or self-care (01) ==
LOC: ER 12:21
DX: L08.9 Local infection of the skin and subcutaneous tissue, unspecified (principal); F17.210 Nicotine dependence, cigarettes, uncomplicated; F32.9 Major depressive disorder, single episode, unspecified; F41.9 Anxiety disorder, unspecified; F43.10 Post-traumatic stress disorder, unspecified; Z88.8 Allergy status to other drugs, medicaments and biological substances
CPT/HCPCS: 99281

== ENCOUNTER 2018-08-11 10:19 | Emergency (ER) | payer OTHER ==
[2018-08-11] MEDS ORDERED: DIPHENHYDRAMINE 50 MG/ML VIAL ONE (13:49)
[2018-08-11] MEDS ORDERED: METOCLOPRAMIDE 10 MG/2mL INJ ONE (13:49)
[2018-08-11] MEDS ORDERED: NA CHLORIDE 0.9% 1,000 ML ONE (13:49)
--- NOTE | 2018-08-11 14:08 | ER ---
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 Transition of care: patient was not received from another setting of care. Onset of symptoms was August 11, 2018. Risk Assessment: Do you want to hurt yourself or someone else? Patient reports no desire to harm self or others. Initial Sepsis Screen: Does the patient meet any 2 criteria? No. Patient's initial sepsis screen is negative. Does the patient have a suspected source of infection? No. Patient's initial sepsis screen is negative. Care prior to arrival: None. 10:31 Method Of Arrival: Ambulatory la1 10:31 Acuity: ROGELIO 3 la1 Triage Assessment: 14:39 Headache History: The patient has had previous headaches and this one is similar to tl3 previous episodes. General: Appears uncomfortable. Pain: Also complains of. Pain: Pain. 14:44 Pain: Pain began 4 days ago. 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 - Social history:: Smoking status: Patient uses tobacco products, smokes one-half pack cigarettes per day. - Ebola Screening: : No symptoms or risks identified at this time. Screenin:30 Abuse screen: Denies threats or abuse. Nutritional screening: No deficits noted. tl3 Tuberculosis screening: No symptoms or risk factors identified. Fall Risk None identified. Assessment: 12:18 General: Appears in no apparent distress. Behavior is calm, cooperative. Pain: iw Complains of pain in head. Neuro: Level of Consciousness is awake, alert, obeys commands. 13:30 Reassessment: Patient and/or family updated on plan of care and expected duration. Pain tl3 level reassessed. Patient is alert, oriented x 3, equal unlabored respirations, skin warm/dry/pink. 14:36 Reassessment: Patient appears in no apparent distress at this time. No changes from tl3 previously documented assessment. Patient and/or family updated on plan of care and expected duration. Pain level reassessed. Patient is alert, oriented x 3, equal unlabored respirations, skin warm/dry/pink. Patient states feeling better. Vital Signs: 10:33 BP 127 / 83; Pulse 86; Resp 14; Temp 98.4; Pulse Ox 98% on R/A; Weight 70.31 kg; Height la1 5 ft. 1 in. (154.94 cm); 13:30 BP 125 / 74; Pulse 60; Resp 18; Pulse Ox 100% on R/A; tl3 14:36 BP 98 / 50; Pulse 50; Resp 18; Pulse Ox 100% on R/A; tl3 10:33 Body Mass Index 29.29 (70.31 kg, 154.94 cm) la1 ED Course: 10:22 Patient arrived in ED. mr 10:22 Unknown, Unknown is Private Physician. mr 10:32 Triage completed. la1 10:33 Arm band placed on right wrist. la1 12:05 Natasha Henry, MARIANNE is Primary Nurse. iw 12:09 Isael Myers MD is Attending Physician. ps1 13:30 Patient has correct armband on for positive identification. Bed in low position. Call tl3 light in reach. Side rails up X 1. Pulse ox on. NIBP on. 13:30 No provider procedures requiring assistance completed. Inserted saline lock: 20 gauge tl3 in left antecubital area, using aseptic technique. 14:36 IV discontinued, intact, bleeding controlled, No redness/swelling at site. Pressure tl3 dressing applied. Administered Medications: 13:30 Drug: Reglan 10 mg Route: IVP; Infused Over: 2 mins; Site: left antecubital; tl3 14:38 Follow up: Response: No adverse reaction tl3 13:30 Drug: Benadryl 25 mg Route: IVP; Infused Over: 3 mins; Site: left antecubital; tl3 14:38 Follow up: Response: No adverse reaction tl3 13:30 Drug: NS 0.9% 1000 ml Route: IV; Rate: 1 bolus; Site: left antecubital; Delivery: tl3 Primary tubing; 14:38 Follow up: IV Status: Completed infusion; IV Intake: 1000ml tl3 Intake: 14:38 IV: 1000ml; Total: 1000ml. tl3 Outcome: 14:08 Discharge ordered by . ps1 14:36 Discharged to home ambulatory. tl3 14:36 Condition: stable 14:36 Discharge instructions given to patient, Instructed on discharge instructions, follow up and referral plans. Demonstrated understanding of instructions, follow-up care. 14:44 Patient left the ED. tl3 Signatures: Megha Dyer Irene, RN RN iw Tyshawn Mathur RN RN la1 Isael Myers MD MD ps1 Modesta Cyr RN RN tl3
--- NOTE | 2018-08-11 14:08 | EDPHYS ---
Physician Documentation [facility] Name: Mariluz Infante Age: 28 yrs Sex: Female : 1990 Arrival Date: 08/11/2018 Time: 10:22 Bed 24 Private MD: Unknown, Unknown ED Physician Isael Myers HPI: 08/11 13:46 This 28 yrs old Female presents to ER via Ambulatory with complaints of ps1 Headache. 13:46 patient states that she is having a typical migraine that she normally will have. She ps1 is on abortive medications of topimax and sumatriptan. She states that the medications are not working as they usually do and that she cannot get to her neurologist. She usually has good results with migraine cocktail. No other complaints. . 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 - Social history:: Smoking status: Patient uses tobacco products, smokes one-half pack cigarettes per day. - Ebola Screening: : No symptoms or risks identified at this time. ROS: 13:46 Constitutional: Negative for fever, chills, and weight loss, Eyes: Negative for injury, ps1 pain, redness, and discharge, Cardiovascular: Negative for chest pain, palpitations, and edema, Respiratory: Negative for shortness of breath, cough, wheezing, and pleuritic chest pain, Abdomen/GI: Negative for abdominal pain, nausea, vomiting, diarrhea, and constipation, MS/Extremity: Negative for injury and deformity, Skin: Negative for injury, rash, and discoloration. 13:46 Neuro: Positive for headache. Exam: 13:46 Constitutional: This is a well developed, well nourished patient who is awake, alert, ps1 and in no acute distress. Head/Face: Normocephalic, atraumatic. Eyes: Pupils equal round and reactive to light, extra-ocular motions intact. Lids and lashes normal. Conjunctiva and sclera are non-icteric and not injected. Chest/axilla: Normal chest wall appearance and motion. Nontender with no deformity. No lesions are appreciated. Cardiovascular: Regular rate and rhythm. No gallops, murmurs, or rubs. Normal PMI, no JVD. No pulse deficits. Respiratory: Lungs have equal breath sounds bilaterally, clear to auscultation and percussion. No rales, rhonchi or wheezes noted. No increased work of breathing, no retractions or nasal flaring. Abdomen/GI: Soft, non-tender, with normal bowel sounds. No distension or tympany. No guarding or rebound. No evidence of tenderness throughout. Skin: Warm, dry with normal turgor. Normal color with no rashes, no lesions, and no evidence of cellulitis. MS/ Extremity: Pulses equal, no cyanosis. Neurovascular intact. Full, normal range of motion. Neuro: Awake and alert, GCS 15, oriented to person, place, time, and situation. Cranial nerves II-XII grossly intact. Sensory grossly intact. Vital Signs: 10:33 BP 127 / 83; Pulse 86; Resp 14; Temp 98.4; Pulse Ox 98% on R/A; Weight 70.31 kg; Height la1 5 ft. 1 in. (154.94 cm); 13:30 BP 125 / 74; Pulse 60; Resp 18; Pulse Ox 100% on R/A; tl3 14:36 BP 98 / 50; Pulse 50; Resp 18; Pulse Ox 100% on R/A; tl3 10:33 Body Mass Index 29.29 (70.31 kg, 154.94 cm) la1 MDM: 12:47 Patient medically screened. ps1 14:04 Data reviewed: vital signs, nurses notes, and as a result, I will discharge patient. ps1 Response to treatment: the patient's symptoms have markedly improved after treatment. Administered Medications: 13:30 Drug: Reglan 10 mg Route: IVP; Infused Over: 2 mins; Site: left antecubital; tl3 14:38 Follow up: Response: No adverse reaction tl3 13:30 Drug: Benadryl 25 mg Route: IVP; Infused Over: 3 mins; Site: left antecubital; tl3 14:38 Follow up: Response: No adverse reaction tl3 13:30 Drug: NS 0.9% 1000 ml Route: IV; Rate: 1 bolus; Site: left antecubital; Delivery: tl3 Primary tubing; 14:38 Follow up: IV Status: Completed infusion; IV Intake: 1000ml tl3 Disposition: 08/11/18 14:08 Discharged to Home. Impression: Migraine. - Condition is Stable. - Discharge Instructions: Migraine Headache. - Medication Reconciliation Form, Thank You Letter, Antibiotic Education, Prescription Opioid Use form. - Follow up: Private Physician; When: As needed; Reason: Further diagnostic work-up, Recheck today's complaints, Continuance of care, Re-evaluation by your physician. Follow up: Emergency Department; When: As needed; Reason: Worsening of condition. - Problem is an acute exacerbation. - Symptoms have improved. Signatures: Tyshawn Mathur RN RN la1 Isael Myers MD MD ps1 Modesta Cyr RN RN tl3 Corrections: (The following items were deleted from the chart) 14:44 14:08 08/11/2018 14:08 Discharged to Home. Impression: Migraine. Condition is Stable. tl3 Forms are Medication Reconciliation Form, Thank You Letter, Antibiotic Education, Prescription Opioid Use. Follow up: Private Physician; When: As needed; Reason: Further diagnostic work-up, Recheck today's complaints, Continuance of care, Re-evaluation by your physician. Follow up: Emergency Department; When: As needed; Reason: Worsening of condition. Problem is an acute exacerbation. Symptoms have improved. ps1
== END 2018-08-11 14:44 | disposition home or self-care (01) ==
LOC: ER 10:19
DX: G43.909 Migraine, unspecified, not intractable, without status migrainosus (principal); F17.210 Nicotine dependence, cigarettes, uncomplicated
CPT/HCPCS: 96361; 96374; 96375; 99283; J2765; J7030

== ENCOUNTER 2018-10-12 12:48 | Emergency (ER) | payer OTHER ==
[2018-10-12] MEDS ORDERED: NA CHLORIDE 0.9% 1,000 ML ONE (13:44)
[2018-10-12] MEDS ORDERED: ONDANSETRON 4 MG/2 ML VIAL ONE (13:51)
[2018-10-12] MEDS ORDERED: METOCLOPRAMIDE 10 MG/2mL INJ ONE (13:51)
--- NOTE | 2018-10-12 13:57 | RAD REPORT ---
EXAM DESCRIPTION: CT - Head Brain Wo Cont - 10/12/2018 1:50 pm CLINICAL HISTORY: HEADACHE COMPARISON: CT head February 2018 TECHNIQUE: Axial 5 mm thick images of the head were obtained without IV contrast. All CT scans are performed using dose optimization technique as appropriate and may include automated exposure control or mA/KV adjustment according to patient size. FINDINGS: No intracranial hemorrhage, mass, edema or shift of mid-line structures. No acute infarcti on changes seen. No abnormal extra-axial fluid collections. Ventricles are normal. Mastoid air cells and visualized portions of the paranasal sinuses are clear. No acute bony findings. No significant change from comparison. IMPRESSION: Negative non-contrast CT head examination.
[2018-10-12] MEDS ORDERED: KETOROLAC 30 MG/ML INJ ONE (14:52)
--- NOTE | 2018-10-12 15:33 | ER ---
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 Transition of care: patient was not received from another setting of care. Onset of symptoms was October 12, 2018. Risk Assessment: Do you want to hurt yourself or someone else? Patient reports no desire to harm self or others. Initial Sepsis Screen: Does the patient meet any 2 criteria? No. Patient's initial sepsis screen is negative. Does the patient have a suspected source of infection? No. Patient's initial sepsis screen is negative. Care prior to arrival: None. 13:08 Method Of Arrival: Ambulatory sg Triage Assessment: 13:15 Headache History: The patient has had previous headaches and this one is more severe rb1 than previous episodes. General: Appears uncomfortable, Behavior is calm, cooperative. Pain: Pain currently is 10 out of 10 on a pain scale. Pain began 3 hours ago. Also complains of nausea. 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 - Social history:: Smoking status: Patient/guardian denies using tobacco. - Ebola Screening: : Patient negative for fever greater than or equal to 101.5 degrees Fahrenheit, and additional compatible Ebola Virus Disease symptoms Patient denies exposure to infectious person Patient denies travel to an Ebola-affected area in the 21 days before illness onset No symptoms or risks identified at this time. Screenin:15 Abuse screen: Denies threats or abuse. Nutritional screening: No deficits noted. rb1 Tuberculosis screening: No symptoms or risk factors identified. Fall Risk None identified. Assessment: 13:15 General: Appears uncomfortable, Behavior is calm, cooperative, Denies fever. Pain: rb1 Complains of pain in head Pain currently is 10 out of 10 on a pain scale. Pain began x 3 hours. Neuro: Level of Consciousness is awake, alert, obeys commands, Oriented to person, place, time, situation. Cardiovascular: Capillary refill < 3 seconds is brisk in bilateral fingers. Respiratory: Airway is patent Respiratory effort is even, unlabored, Respiratory pattern is regular, symmetrical. GI: No signs and/or symptoms were reported involving the gastrointestinal system. : No signs and/or symptoms were reported regarding the genitourinary system. Derm: Skin is pink, warm \T\ dry. Musculoskeletal: Range of motion: intact in all extremities. 13:45 Reassessment: Pt. went to CT. rb1 14:15 Reassessment: Patient appears in no apparent distress at this time. Patient and/or rb1 family updated on plan of care and expected duration. Pain level reassessed. Patient is alert, oriented x 3, equal unlabored respirations, skin warm/dry/pink. Patient states feeling better. 15:15 Reassessment: Patient appears in no apparent distress at this time. No changes from rb1 previously documented assessment. 16:00 Reassessment: I went in to discharge the pt. when I returned from lunch and the pt. rb1 could not be found. I looked in the lobby but she was not there. Pt. left the ED without signing her discharge papers. She had discontinued her own IV and put it in the trash. Vital Signs: 13:09 BP 124 / 82; Pulse 71; Resp 17; Temp 98.2; Pulse Ox 99% ; Weight 70.31 kg (R); Height 5 sg ft. 1 in. (154.94 cm); Pain 10/10; 14:00 BP 110 / 75; Pulse 72; Resp 16; Pulse Ox 99% on R/A; rb1 14:53 BP 99 / 60; Pulse 65; Resp 17; Pulse Ox 97% on R/A; Pain 5/10; rb1 13:09 Body Mass Index 29.29 (70.31 kg, 154.94 cm) ED Course: 12:49 Patient arrived in ED. mr 12:49 Out, of [facility] is Private Physician. mr 13:05 Triage completed. sg 13:05 Arm band placed on. sg 13:12 James Arroyo PA is PHCP. jmm 13:12 Frank Toledo MD is Attending Physician. jmm 13:15 Patient has correct armband on for positive identification. Bed in low position. Call rb1 light in reach. Side rails up X 1. Pulse ox on. NIBP on. 13:21 Marsha Adame, RN is Primary Nurse. rb1 13:25 Missed attempt(s): 22 gauge in right antecubital area. rb1 13:30 Inserted saline lock: 22 gauge in left antecubital area, using aseptic technique. rb1 13:50 CT Head Brain wo Cont In Process Unspecified. EDMS 16:00 No provider procedures requiring assistance completed. IV discontinued, Pt. rb1 discontinued her own IV before leaving the facility. She left without signing discharge paperwork. I looked for the pt in the lobby but was unable to find her. I found her IV in the trash can. When I looked at the IV it was intact and I placed it in the sharps container. BOUBACAR Keith Tech witnessed me finding the IV. Administered Medications: 13:36 Drug: NS 0.9% 1000 ml Route: IV; Rate: 1 bolus; Site: left antecubital; rb1 13:45 Drug: Reglan 10 mg Route: IVP; Site: left antecubital; rb1 14:00 Follow up: Response: No adverse reaction; Nausea is decreased rb1 13:45 Drug: Zofran 4 mg Route: IVP; Site: left antecubital; rb1 14:00 Follow up: Response: No adverse reaction; Nausea is decreased rb1 14:43 Drug: Ketorolac 30 mg Route: IVP; Site: left antecubital; rb1 15:00 Follow up: Response: No adverse reaction; Pain is decreased rb1 Outcome: 15:32 Discharge ordered by . jmm 16:00 Patient left the ED. rb1 16:00 Discharged to home ambulatory. rb1 16:00 Condition: stable 16:00 Discharge instructions given to Patient left before signing discharge paperwork. Signatures: Dispatcher [employer] EDMS Teo Poeen, RN RN James Aden PA PA bette Dyer Megha mr Marsha Adame RN RN rb1 Corrections: (The following items were deleted from the chart) 18:01 16:14 Patient left the ED. rb1 rb1 18:06 16:00 Discharge instructions given to Patient left before signing discharge paperwork. rb1 rb1
--- NOTE | 2018-10-12 15:33 | EDPHYS ---
Physician Documentation [facility] Name: Mariluz Infante Age: 28 yrs Sex: Female : 1990 Arrival Date: 10/12/2018 Time: 12:49 Bed 14 Private MD: Out, [facility] ED Physician Frank Toledo HPI: 10/12 13:24 This 28 yrs old Female presents to ER via Ambulatory with complaints of jmm Headache. 13:24 Onset: The symptoms/episode began/occurred gradually, 3 hour(s) ago. jmm 13:24 The patient has experienced similar episodes in the past, but today's symptoms are jmm worse, more painful. 13:24 This is a 28 year old female with a history of anxiety, depression, migraines that jmm presents to the ED with complaints of headache, worse than previous similar in character to previous migraines, which began approx 3 hours ago. Patient states she is out of her abortive migraine medications. Denies fever. 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 - Social history:: Smoking status: Patient/guardian denies using tobacco. - Ebola Screening: : Patient negative for fever greater than or equal to 101.5 degrees Fahrenheit, and additional compatible Ebola Virus Disease symptoms Patient denies exposure to infectious person Patient denies travel to an Ebola-affected area in the 21 days before illness onset No symptoms or risks identified at this time. ROS: 13:24 Constitutional: Negative for fever, chills, and weight loss, Cardiovascular: Negative jmm for chest pain, palpitations, and edema, Respiratory: Negative for shortness of breath, cough, wheezing, and pleuritic chest pain. 13:24 Neuro: Positive for headache. 13:24 All other systems are negative. Exam: 13:24 Constitutional: This is a well developed, well nourished patient who is awake, alert, jmm and in no acute distress. Head/Face: atraumatic. Eyes: EOMI, no conjunctival erythema appreciated ENT: Moist Mucus Membranes Neck: Trachea midline, Supple Chest/axilla: Normal chest wall appearance and motion. Cardiovascular: Regular rate and rhythm. No edema appreciated Respiratory: Normal respirations, no respiratory distress appreciated Abdomen/GI: Non distended, soft Back: Normal ROM Skin: General appearance color normal MS/ Extremity: Moves all extremities, no obvious deformities appreciated, no edema noted to the lower extremities 13:24 Neuro: Orientation: is normal, Mentation: is normal, Memory: is normal, Cerebellar function: normal finger to nose testing, Motor: is normal, Gait: is steady. 13:24 Psych: Behavior/mood is pleasant, cooperative. Vital Signs: 13:09 BP 124 / 82; Pulse 71; Resp 17; Temp 98.2; Pulse Ox 99% ; Weight 70.31 kg (R); Height 5 sg ft. 1 in. (154.94 cm); Pain 10/10; 14:00 BP 110 / 75; Pulse 72; Resp 16; Pulse Ox 99% on R/A; rb1 14:53 BP 99 / 60; Pulse 65; Resp 17; Pulse Ox 97% on R/A; Pain 5/10; rb1 13:09 Body Mass Index 29.29 (70.31 kg, 154.94 cm) sg MDM: 13:18 Patient medically screened. [facility] 15:32 Data reviewed: vital signs, nurses notes. Counseling: I had a detailed discussion with [facility] the patient and/or guardian regarding: the historical points, exam findings, and any diagnostic results supporting the discharge/admit diagnosis, radiology results, the need for outpatient follow up, to return to the emergency department if symptoms worsen or persist or if there are any questions or concerns that arise at home. ED course: CT negative. Headache has improved. Advised to follow up with her neurologist for further evaluation. Advised to return to the ED if symptoms worsen. patient understood and agrees with the plan of care. . 10/12 13:19 Order name: CT Head Brain wo Cont; Complete Time: 13:58 [facility] 10/12 13:19 Order name: Saline Lock; Complete Time: 13:38 [facility] Administered Medications: 13:36 Drug: NS 0.9% 1000 ml Route: IV; Rate: 1 bolus; Site: left antecubital; rb1 13:45 Drug: Reglan 10 mg Route: IVP; Site: left antecubital; rb1 14:00 Follow up: Response: No adverse reaction; Nausea is decreased rb1 13:45 Drug: Zofran 4 mg Route: IVP; Site: left antecubital; rb1 14:00 Follow up: Response: No adverse reaction; Nausea is decreased rb1 14:43 Drug: Ketorolac 30 mg Route: IVP; Site: left antecubital; rb1 15:00 Follow up: Response: No adverse reaction; Pain is decreased rb1 Disposition: 10/12/18 15:32 Discharged to Home. Impression: Migraine. - Condition is Stable. - Discharge Instructions: Migraine Headache. - Medication Reconciliation Form, Thank You Letter, Antibiotic Education, Prescription Opioid Use form. - Follow up: Private Physician; When: 2 - 3 days; Reason: Recheck today's complaints, Continuance of care, Re-evaluation by your physician. Addendum: 10/14/2018 07:41 Co-signature as Attending Physician, Frank Toledo MD I agree with the assessment and c mata plan of care. Signatures: Dispatcher [employer] Cem Ayoub RN RN Frank March MD MD cha Mickail, Joel, PA PA jmm Barber, Rebecca, RN RN rb1 Corrections: (The following items were deleted from the chart) 10/12 16:14 15:32 10/12/2018 15:32 Discharged to Home. Impression: Migraine. Condition is Stable. rb1 Forms are Medication Reconciliation Form, Thank You Letter, Antibiotic Education, Prescription Opioid Use. Follow up: Private Physician; When: 2 - 3 days; Reason: Recheck today's complaints, Continuance of care, Re-evaluation by your physician. rita
== END 2018-10-12 16:14 | disposition home or self-care (01) ==
LOC: ER 12:48
DX: G43.909 Migraine, unspecified, not intractable, without status migrainosus (principal); F41.9 Anxiety disorder, unspecified; F32.9 Major depressive disorder, single episode, unspecified; F43.10 Post-traumatic stress disorder, unspecified
CPT/HCPCS: 70450; 96374; 96375; 99284; J2405; J2765; J7030

== ENCOUNTER 2019-07-25 11:37 | Emergency (ER) | payer OTHER ==
[2019-07-25 13:09] LABS: Absolute Lymphocytes (CBC) 3.3 K/uL (0.7-4.9); Basophils % 0.8 % (0-1.3); Hematocrit 40.4 % (36.0-45.0); Lymphocytes % 39.5 % (15.3-44.8); MPV 8.4 fL (7.6-11.3); RBC Red Blood Cell Count 4.72 M/uL (3.86-4.86)
[2019-07-25 13:25] LABS: ALT/SGPT 30 U/L (12-78); AST/SGOT 15 U/L (15-37); Albumin 4.2 g/dL (3.4-5.0); Alkaline Phosphatase 72 U/L (45-117); BUN Blood Urea Nitrogen 13 mg/dL (7-18); Bicarbonate 31 mmol/L (21-32); Bilirubin Direct 0.1 mg/dL (0-0.2); Bilirubin Total 0.4 mg/dL (0.2-1.0); Glucose Level 89 mg/dL (74-106); Lipase 80 U/L (73-393); Protein, Total 7.6 g/dL (6.4-8.2); Sodium Level 141 mmol/L (136-145)
--- NOTE | 2019-07-25 13:46 | RAD REPORT ---
EXAM DESCRIPTION: CTAbdomen Pelvis W Contrast - 07/25/2019 1:37 pm CLINICAL HISTORY: Abdominal pain. ABD PAIN COMPARISON: Abdomen Pelvis W Contrast dated 01/22/2018; Abdomen Pelvis W Contrast dated 01/18/2017 TECHNIQUE: Biphasic CT imaging of the abdomen and pelvis was performed with 100 ml non-ionic IV cont rast. All CT scans are performed using dose optimization technique as appropriate and may include automated exposure control or mA/KV adjustment according to patient size. FINDINGS: The lung bases are clear. The liver, spleen, pancreas, adrenal glands and kidneys are within normal limits. No bowel obstruction, free air, free fluid or abscess. The appendix is normal. No evidence of signi ficant lymphadenopathy. No suspicious bony findings. IMPRESSION: No acute intra-abdominal or pelvic finding.
--- NOTE | 2019-07-25 14:20 | ER ---
Nurse's Notes [facility] Name: Mariluz Infante Age: 29 yrs Sex: Female : 1990 Arrival Date: 07/25/2019 Time: 11:45 Bed 25 Private MD: Diagnosis: Lower abdominal pain, unspecified;Gastrointestinal hemorrhage, unspecified Presentation: 07/25 12:16 Presenting complaint: Patient states: for 3 days, passing blood clots in BM, this iw morning worse, no stool just blood, lower abd pain +nausea this morning. Transition of care: patient was not received from another setting of care. Onset of symptoms was July 22, 2019. Risk Assessment: Do you want to hurt yourself or someone else? Patient reports no desire to harm self or others. Initial Sepsis Screen: Does the patient meet any 2 criteria? No. Patient's initial sepsis screen is negative. Does the patient have a suspected source of infection? No. Patient's initial sepsis screen is negative. Care prior to arrival: None. 12:16 Method Of Arrival: Ambulatory iw 12:16 Acuity: ROGELIO 3 iw Triage Assessment: 12:22 General: Appears in no apparent distress. comfortable, Behavior is cooperative, bp appropriate for age, anxious. Pain: Denies pain. EENT: No deficits noted. Neuro: No deficits noted. Cardiovascular: No deficits noted. Respiratory: No deficits noted. GI: Reports bloody stool. : No signs and/or symptoms were reported regarding the genitourinary system. Derm: No deficits noted. Musculoskeletal: No deficits noted. 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 - Social history:: Smoking status: Patient uses tobacco products, 1/4 ppd. - Ebola Screening: : Patient negative for fever greater than or equal to 101.5 degrees Fahrenheit, and additional compatible Ebola Virus Disease symptoms Patient denies exposure to infectious person Patient denies travel to an Ebola-affected area in the 21 days before illness onset No symptoms or risks identified at this time. Screenin:24 Abuse screen: Denies threats or abuse. Denies injuries from another. Nutritional bp screening: No deficits noted. Tuberculosis screening: No symptoms or risk factors identified. Fall Risk None identified. Assessment: 12:24 General: SEE TRIAGE NOTE. bp 13:14 Reassessment: ALL CURRENT LABS IN PROCESS, CT PENDING. bp 14:14 Reassessment: ALL CURRENT ORDERS COMPLETED, DISPO PENDING. bp Vital Signs: 12:17 BP 112 / 72; Pulse 67; Resp 16; Temp 99.0; Pulse Ox 98% on R/A; Weight 65.77 kg; Height iw 5 ft. 1 in. (154.94 cm); Pain 6/10; 13:14 BP 99 / 64; Pulse 58; Resp 15; Pulse Ox 97% ; bp 14:14 BP 105 / 63; Pulse 60; Resp 16; Pulse Ox 98% ; bp 14:27 BP 101 / 70; Pulse 58; Resp 15; Temp 98.9; Pulse Ox 100% ; bp 12:17 Body Mass Index 27.40 (65.77 kg, 154.94 cm) iw ED Course: 11:45 Patient arrived in ED. iw 12:17 Triage completed. iw 12:18 Annabel[facility] Harrison [facility]C [facility]. kb 12:18 Jayden Mays MD is Attending Physician. kb 12:22 Sohail Curtis, MARIANNE is Primary Nurse. bp 12:23 Arm band placed on. bp 12:24 Patient has correct armband on for positive identification. Bed in low position. Call bp light in reach. Side rails up X2. 12:59 Initial lab(s) drawn, by me, sent to lab. Inserted saline lock: 20 gauge in left lt1 antecubital area, using aseptic technique. 13:38 CT Abd/Pelvis - IV Contrast Only In Process Unspecified. EDMS 14:10 Occult Blood--Ancillary Sent. bp 14:28 No provider procedures requiring assistance completed. IV discontinued, intact, bp bleeding controlled, No redness/swelling at site. Pressure dressing applied. Administered Medications: No medications were administered Outcome: 14:19 Discharge ordered by MD. farley 14:28 Discharged to home ambulatory, with family. bp 14:28 Condition: stable 14:28 Discharge instructions given to patient, Instructed on discharge instructions, follow up and referral plans. Demonstrated understanding of instructions, follow-up care. 14:33 Patient left the ED. lt1 Signatures: Dispatcher [employer] EDAnnabelle East, AILYN FAIRCHILD-Natasha Sandy RN RN iw Peltier, Brian, RN RN Kecia Richardson lt1
--- NOTE | 2019-07-25 14:20 | EDPHYS ---
Physician Documentation [facility] Name: Mariluz Infante Age: 29 yrs Sex: Female : 1990 Arrival Date: 07/25/2019 Time: 11:45 Bed 25 Private MD: ED Physician Jayden Mays HPI: 07/25 14:17 This 29 yrs old Female presents to ER via Ambulatory with complaints of kb Bloody Stools. 14:17 The patient presents with abdominal pain in the lower abdomen. Onset: The kb symptoms/episode began/occurred 3 day(s) ago. The symptoms do not radiate. Associated signs and symptoms: Pertinent positives: blood in stools. The symptoms are described as constant. Modifying factors: The symptoms are alleviated by nothing, the symptoms are aggravated by nothing. Severity of pain: At its worst the pain was mild moderate in the emergency department the pain is unchanged. The patient has not experienced similar symptoms in the past. The patient has not recently seen a physician. 14:18 Pt reports blood in stool and lower abd pain for 3 days. . 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 - Social history:: Smoking status: Patient uses tobacco products, / ppd. - Ebola Screening: : Patient negative for fever greater than or equal to 101.5 degrees Fahrenheit, and additional compatible Ebola Virus Disease symptoms Patient denies exposure to infectious person Patient denies travel to an Ebola-affected area in the 21 days before illness onset No symptoms or risks identified at this time. ROS: 14:16 Constitutional: Negative for fever, chills, and weight loss, Neck: Negative for injury, kb pain, and swelling, Cardiovascular: Negative for chest pain, palpitations, and edema, Respiratory: Negative for shortness of breath, cough, wheezing, and pleuritic chest pain, Back: Negative for injury and pain, MS/Extremity: Negative for injury and deformity, Skin: Negative for injury, rash, and discoloration, Neuro: Negative for headache, weakness, numbness, tingling, and seizure. 14:16 Abdomen/GI: Positive for abdominal pain, rectal bleeding. Exam: 14:16 Constitutional: This is a well developed, well nourished patient who is awake, alert, kb and in no acute distress. Head/Face: Normocephalic, atraumatic. ENT: Nares patent. No nasal discharge, no septal abnormalities noted. Tympanic membranes are normal and external auditory canals are clear. Oropharynx with no redness, swelling, or masses, exudates, or evidence of obstruction, uvula midline. Mucous membranes moist. Neck: Trachea midline, no thyromegaly or masses palpated, and no cervical lymphadenopathy. Supple, full range of motion without nuchal rigidity, or vertebral point tenderness. No Meningismus. Chest/axilla: Normal chest wall appearance and motion. Nontender with no deformity. No lesions are appreciated. Cardiovascular: Regular rate and rhythm with a normal S1 and S2. No gallops, murmurs, or rubs. Normal PMI, no JVD. No pulse deficits. Respiratory: Lungs have equal breath sounds bilaterally, clear to auscultation and percussion. No rales, rhonchi or wheezes noted. No increased work of breathing, no retractions or nasal flaring. Back: No spinal tenderness. No costovertebral tenderness. Full range of motion. Skin: Warm, dry with normal turgor. Normal color with no rashes, no lesions, and no evidence of cellulitis. MS/ Extremity: Pulses equal, no cyanosis. Neurovascular intact. Full, normal range of motion. Neuro: Awake and alert, GCS 15, oriented to person, place, time, and situation. Cranial nerves II-XII grossly intact. Motor strength 5/5 in all extremities. Sensory grossly intact. Cerebellar exam normal. Normal gait. 14:16 Abdomen/GI: Inspection: abdomen appears normal, Bowel sounds: normal, in all quadrants, Palpation: soft, in all quadrants, mild abdominal tenderness, in the right lower quadrant and left lower quadrant, Rectal exam: rectal tone normal, Stool: brown, guaiac positive, hemorrhoid(s), external. Vital Signs: 12:17 BP 112 / 72; Pulse 67; Resp 16; Temp 99.0; Pulse Ox 98% on R/A; Weight 65.77 kg; Height iw 5 ft. 1 in. (154.94 cm); Pain 6/10; 13:14 BP 99 / 64; Pulse 58; Resp 15; Pulse Ox 97% ; bp 14:14 BP 105 / 63; Pulse 60; Resp 16; Pulse Ox 98% ; bp 14:27 BP 101 / 70; Pulse 58; Resp 15; Temp 98.9; Pulse Ox 100% ; bp 12:17 Body Mass Index 27.40 (65.77 kg, 154.94 cm) iw MDM: 12:21 Patient medically screened. kb 14:15 Data reviewed: vital signs, nurses notes. Data interpreted: Pulse oximetry: on room air kb is 98 %. Interpretation: normal. Counseling: I had a detailed discussion with the patient and/or guardian regarding: the historical points, exam findings, and any diagnostic results supporting the discharge/admit diagnosis, lab results, radiology results, the need for outpatient follow up, a dynamics ax developer, to return to the emergency department if symptoms worsen or persist or if there are any questions or concerns that arise at home. 07/25 12:48 Order name: Basic Metabolic Panel; Complete Time: 13:28 kb 07/25 12:48 Order name: CBC with Diff; Complete Time: 13:28 kb 07/25 12:48 Order name: Hepatic Function; Complete Time: 13:28 kb 07/25 12:48 Order name: Lipase; Complete Time: 13:28 kb 07/25 12:48 Order name: CT Abd/Pelvis - IV Contrast Only; Complete Time: 13:56 kb 07/25 12:48 Order name: IV Saline Lock; Complete Time: 13:00 kb 07/25 12:48 Order name: Labs collected and sent; Complete Time: 13:00 kb Administered Medications: No medications were administered Disposition: 16:44 Co-signature as Attending Physician, Jayden Mays MD I agree with the assessment and kdr plan of care. Disposition: 07/25/19 14:19 Discharged to Home. Impression: Lower abdominal pain, unspecified, Gastrointestinal hemorrhage, unspecified. - Condition is Stable. - Discharge Instructions: Rectal Bleeding, Abdominal Pain, Adult, [id number]. - Medication Reconciliation Form, Thank You Letter, Antibiotic Education, Prescription Opioid Use, Work release form form. - Follow up: Emergency Department; When: As needed; Reason: Worsening of condition. Follow up: Private Physician; When: 2 - 3 days; Reason: Recheck today's complaints, Continuance of care, Re-evaluation by your physician. Signatures: Dispatcher [employer] EDNJ Annabelle Harrison, DEVORAH-C WATER FILTER CLEANER-Jayden Bowden MD MD kdr Natasha Henry RN RN iw Maria Teresa, Kecia lt1 Corrections: (The following items were deleted from the chart) 14:33 14:19 07/25/2019 14:19 Discharged to Home. Impression: Lower abdominal pain, lt1 unspecified; Gastrointestinal hemorrhage, unspecified. Condition is Stable. Forms are Medication Reconciliation Form, Thank You Letter, Antibiotic Education, Prescription Opioid Use. Follow up: Emergency Department; When: As needed; Reason: Worsening of condition. Follow up: Private Physician; When: 2 - 3 days; Reason: Recheck today's complaints, Continuance of care, Re-evaluation by your physician. kb
[2019-07-25 16:56] VITALS: BP 101/70; TEMP 98.9; O2SAT 100
== END 2019-07-25 14:33 | disposition home or self-care (01) ==
LOC: ER 11:37
DX: K92.2 Gastrointestinal hemorrhage, unspecified (principal); F32.9 Major depressive disorder, single episode, unspecified; F41.9 Anxiety disorder, unspecified; Z88.8 Allergy status to other drugs, medicaments and biological substances
CPT/HCPCS: 85025; 80048; 36415; 80076; 83690; 74177; 99284; Q9967

== ENCOUNTER 2019-08-11 07:13 | Emergency (ER) | payer OTHER ==
--- NOTE | 2019-08-11 08:16 | ER ---
Nurse's Notes [facility] Name: Mariluz Infante Age: 29 yrs Sex: Female : 1990 Arrival Date: 08/11/2019 Time: 07:16 Bed 13 Private MD: Diagnosis: Acute bronchitis Presentation: 08/11 07:23 Presenting complaint: Patient states: productive cough brownish/blood tinged in color, sv congestion, fever Tmax 102.5 x 6 days. Transition of care: patient was not received from another setting of care. Onset of symptoms was August 05, 2019. Risk Assessment: Do you want to hurt yourself or someone else? Patient reports no desire to harm self or others. Initial Sepsis Screen: Does the patient meet any 2 criteria? HR > 90 bpm. No. Patient's initial sepsis screen is negative. Does the patient have a suspected source of infection? Yes: Productive cough/pneumonia. Care prior to arrival: Medication(s) given: Motrin, taken at 0500 today Tylenol, taken last night. 07:23 Method Of Arrival: Ambulatory sv 07:23 Acuity: ROGELIO 3 sv Triage Assessment: 07:23 General: Appears in no apparent distress. uncomfortable, Behavior is calm, cooperative, sv appropriate for age. General: Reports fever for > 3 days, body aches. Pain: Denies pain. Neuro: Level of Consciousness is awake, alert, obeys commands, Oriented to person, place, time, situation, Moves all extremities. Full function Gait is steady. Respiratory: Reports cough that is non-productive, Airway is patent Respiratory effort is even, unlabored, Respiratory pattern is regular, symmetrical. Derm: Skin is pink, warm \T\ dry. Musculoskeletal: Range of motion: intact in all extremities. 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 - Social history:: Smoking status: Patient uses tobacco products, smokes .25 packs per day. - Ebola Screening: : No symptoms or risks identified at this time. Screenin:29 Abuse screen: Denies threats or abuse. Denies injuries from another. Nutritional sv screening: No deficits noted. Tuberculosis screening: No symptoms or risk factors identified. Fall Risk None identified. Assessment: 08:22 Reassessment: Patient appears in no apparent distress at this time. No changes from sv previously documented assessment. Patient and/or family updated on plan of care and expected duration. Pain level reassessed. Patient is alert, oriented x 3, equal unlabored respirations, skin warm/dry/pink. Vital Signs: 07:27 BP 118 / 73; Pulse 99; Resp 16; Temp 99.6; Pulse Ox 98% ; Weight 65.77 kg; Height 5 ft. sv 1 in. (154.94 cm); Pain 0/10; 07:27 Body Mass Index 27.40 (65.77 kg, 154.94 cm) sv ED Course: 07:16 Patient arrived in ED. as 07:18 James [facility]roy[facility] 07:18 Isael Myers MD is Attending Physician. [facility] 07:23 Frances Sanabria RN is Primary Nurse. sv 07:25 Triage completed. sv 07:28 Arm band placed on Patient placed in an exam room, on a stretcher. sv 07:28 Urine collected: clean catch specimen, clear, Flu and/or RSV swab sent to lab. Strep em swab sent to lab. 07:29 Nurse Practitioner and/or Physician Boat Assembler to see patient. sv 07:29 Patient has correct armband on for positive identification. Bed in low position. Call sv light in reach. Pulse ox on. NIBP on. Door closed. Head of bed elevated. 07:30 Awaiting lab results. sv 07:39 Throat Culture Sent. sv 08:22 No provider procedures requiring assistance completed. Patient did not have IV access sv during this emergency room visit. Administered Medications: No medications were administered Outcome: 08:15 Discharge ordered by . [facility] 08:22 Discharged to home ambulatory. sv 08:22 Condition: stable 08:22 Discharge instructions given to patient, Instructed on discharge instructions, follow up and referral plans. medication usage, Demonstrated understanding of instructions, follow-up care, medications, Prescriptions given X 2. 08:23 Patient left the ED. sv Signatures: Frances Sanabria RN RN James Arroyo PA PA [facility] Oren Neri, WEBFED OFFSET PRESS OPERATOR WEBFED OFFSET PRESS OPERATOR em Claire Lizarraga as
--- NOTE | 2019-08-11 08:16 | EDPHYS ---
Physician Documentation [facility] Name: Mariluz Infante Age: 29 yrs Sex: Female : 1990 Arrival Date: 08/11/2019 Time: 07:16 Bed 13 Private MD: ED Physician Isael Myers HPI: 08/11 07:34 This 29 yrs old Female presents to ER via Ambulatory with complaints of jmm Fever, Cough, Congestion. 07:34 The patient reports fever. Onset: The symptoms/episode began/occurred gradually, 5 jmm day(s) ago. Modifying factors: there are no obvious modifying factors. Modifying factors: The patient has had contact with sick. Associated signs and symptoms: Pertinent positives: cough, sinus congestion, sore throat. This is a 29 year old female with a history of anxiety, depression that presents to the ED with complaints of cough, congestion beginning approx 5 days ago. Denies vomiting, diarrhea, abdominal pain. Patient states she received flu immunization this year. . 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 - Social history:: Smoking status: Patient uses tobacco products, smokes .25 packs per day. - Ebola Screening: : No symptoms or risks identified at this time. ROS: 07:34 Constitutional: Positive for fever. jmm 07:34 ENT: Positive for sore throat. 07:34 Respiratory: Positive for cough. 07:34 Abdomen/GI: Negative for abdominal pain, nausea and vomiting, diarrhea. 07:34 All other systems are negative. Exam: 07:34 Constitutional: This is a well developed, well nourished patient who is awake, alert, jmm and in no acute distress. Head/Face: atraumatic. Eyes: EOMI, no conjunctival erythema appreciated 07:34 Neck: Trachea midline, Supple Chest/axilla: Normal chest wall appearance and motion. 07:34 Abdomen/GI: Non distended, soft Back: Normal ROM Skin: General appearance color normal MS/ Extremity: Moves all extremities, no obvious deformities appreciated, no edema noted to the lower extremities Neuro: Awake and alert, normal gait Psych: Behavior is normal, Mood is normal, Patient is cooperative and pleasant 07:34 ENT: TM's: erythema, that is mild, bilaterally, Posterior pharynx: erythema, that is mild. 07:34 Cardiovascular: Rate: normal, Rhythm: regular, Pulses: no pulse deficits are appreciated. 07:34 Respiratory: the patient does not display signs of respiratory distress, Respirations: normal, Breath sounds: are clear throughout. Vital Signs: 07:27 BP 118 / 73; Pulse 99; Resp 16; Temp 99.6; Pulse Ox 98% ; Weight 65.77 kg; Height 5 ft. sv 1 in. (154.94 cm); Pain 0/10; 07:27 Body Mass Index 27.40 (65.77 kg, 154.94 cm) sv MDM: 07:25 Patient medically screened. [facility] 08:10 Data reviewed: vital signs, nurses notes. Counseling: I had a detailed discussion with rita the patient and/or guardian regarding: the historical points, exam findings, and any diagnostic results supporting the discharge/admit diagnosis, lab results, the need for outpatient follow up, to return to the emergency department if symptoms worsen or persist or if there are any questions or concerns that arise at home. ED course: Patient is alert and non toxic in appearance in the ED. Patient was given strict return precautions. Patient understood and agrees with the plan of care. . 08/11 07:18 Order name: Flu; Complete Time: 07:56 [facility] 08/11 07:18 Order name: Strep; Complete Time: 07:38 [facility] 08/11 07:18 Order name: Urine Dipstick-Ancillary (obtain specimen); Complete Time: 07:30 [facility] 08/11 07:37 Order name: Throat Culture [facility] 08/11 08:02 Order name: Urine Dipstick--Ancillary (enter results) bd Administered Medications: No medications were administered Disposition: 08/11/19 08:15 Discharged to Home. Impression: Acute bronchitis. - Condition is Stable. - Discharge Instructions: Acute Bronchitis, Adult. - Prescriptions for Zithromax Z- Neal 250 mg Oral Tablet - take 1 tablet by ORAL route as directed for 5 days Day 1 - take two (2) tablets one time. Day 2, 3, 4 , 5 take one (1) tablet once daily.; 6 tablet. Albuterol Sulfate 90 mcg/actuation - inhale 1-2 puff by INHALATION route every 4-6 hours; 1 Inhaler. - Medication Reconciliation Form, Thank You Letter, Antibiotic Education, Prescription Opioid Use, Work release form form. - Follow up: Private Physician; When: 2 - 3 days; Reason: Recheck today's complaints, Continuance of care, Re-evaluation by your physician. Addendum: 08/18/2019 08:13 Co-signature as Attending Physician, Isael Myers MD Signing chart for administrative p s1 purposes. Did not see or evaluate patient. . Signatures: Dispatcher [employer] Frances Baez RN RN James Lemons PA PA jmm Singer, Phillip, MD MD ps1 Corrections: (The following items were deleted from the chart) 08/11 08:23 08:15 08/11/2019 08:15 Discharged to Home. Impression: Acute bronchitis. Condition is sv Stable. Forms are Medication Reconciliation Form, Thank You Letter, Antibiotic Education, Prescription Opioid Use. Follow up: Private Physician; When: 2 - 3 days; Reason: Recheck today's complaints, Continuance of care, Re-evaluation by your physician. rita
[2019-08-11 08:37] VITALS: BP 118/73; TEMP 99.6; O2SAT 98
[2019-08-11 09:02] LABS: Urine Blood TRACE (NEG); Urine Glucose NEGATIVE (NEG); Urine Protein NEGATIVE (NEG)
== END 2019-08-11 08:23 | disposition home or self-care (01) ==
LOC: ER 07:13
DX: J20.9 Acute bronchitis, unspecified (principal); F17.210 Nicotine dependence, cigarettes, uncomplicated; Z88.8 Allergy status to other drugs, medicaments and biological substances
CPT/HCPCS: 81003; 87070; 87081; 87804; 99283

== ENCOUNTER 2022-01-09 11:38 | Emergency (ER) | payer OTHER ==
--- OUTSIDE RECORDS SUMMARY | 2022-01-09 11:41 | XMS REPORT | Continuity of Care Document ---
:1990 Author Organization [facility] t Address [address] [place] [address] Care Team Providers Name Role Phone CENTER, [facility] Primary Care Physician Un available Toro OTOOLE Attending Clinician Unavailable Toro OTOOLE Attending Clinician Unavailable Doctor Unassigned, Name Attending Clinician Unavailable Toro Otoole MD Attending Clinician 1, Sleep Lab Bed Attending Clinician Unavailable Only, Test Attending Clinician Unavailable Lab, Fam Pob I Attending Clinician Unavailable Anene CONTINUITY COORDINATOR Attending Clinician ANENE Attending Clinician Unavailable Payers Payer Name Policy Type Policy Number Effective Date Expiration Date Leif khalil [employer] [id number] 2021 ADMINISTRATION 00:00:00 [employer] [id number] 2021 ADMINISTRATION 00:00:00 Problems Condition Condition Condition Status Onset Resolution Last Treating Co mments Source Name Details Category Date Date Treatment Clinician Date No known No known Disease Unive rs active active ity of problems problems [facility] Allergies, Adverse Reactions, Alerts Allergy Allergy Status Severity Reaction(s) Onset Inactive Treating Comm ents Source Name Type Date Date Clinician NO KNOWN Drug Active Univers ALLERGIE Class ity of S [facility] Social History Social Habit Start Date Stop Date Quantity Comments Source Exposure to Not sure [facility] SARS-CoV-2 (event) Medica l Branch Sex Assigned At [birth year] [facility] 00:00:00 00:00:00 [facility] Smoking Status Start Date Stop Date Source Unknown if ever smoked [facility] Medications Ordered Filled Start Stop Current Ordering Indication Dosage Frequency Signature Comments Components Source Medication Medication Date Date Medication? Clinician (SIG) Name Name Diclofenac Yes APPLY 1 Univ ers Sodium 1 % 7-14 SMALL ity of gel 00:00: AMOUNT TO [place] 00 THE SKIN Medical EVERY 8 Branch HOURS NEEDED FOR TOPICAL PAIN RELIEF omeprazole Yes TAKE TWO Uni vers 20 mg 7-14 CAPSULES ity of capsule 00:00: BY MOUTH [place] 00 TWICE A Medical DAY FOR Branch STOMACH. *DO NOT CRUSH* Diclofenac Yes APPLY 1 Univ ers Sodium 1 % 7-14 SMALL ity of gel 00:00: AMOUNT TO [place] 00 THE SKIN Medical EVERY 8 Branch HOURS NEEDED FOR TOPICAL PAIN RELIEF omeprazole Yes TAKE TWO Uni vers 20 mg 7-14 CAPSULES ity of capsule 00:00: BY MOUTH [place] 00 TWICE A Medical DAY FOR Branch STOMACH. *DO NOT CRUSH* Diclofenac Yes APPLY 1 Univ ers Sodium 1 % 7-14 SMALL ity of gel 00:00: AMOUNT TO [place] 00 THE SKIN Medical EVERY 8 Branch HOURS NEEDED FOR TOPICAL PAIN RELIEF omeprazole Yes TAKE TWO Uni vers 20 mg 7-14 CAPSULES ity of capsule 00:00: BY MOUTH [place] 00 TWICE A Medical DAY FOR Branch STOMACH. *DO NOT CRUSH* Diclofenac Yes APPLY 1 Univ ers Sodium 1 % 7-14 SMALL ity of gel 00:00: AMOUNT TO [place] 00 THE SKIN Medical EVERY 8 Branch HOURS NEEDED FOR TOPICAL PAIN RELIEF omeprazole Yes TAKE TWO Uni vers 20 mg 7-14 CAPSULES ity of capsule 00:00: BY MOUTH [place] 00 TWICE A Medical DAY FOR Branch STOMACH. *DO NOT CRUSH* Diclofenac Yes APPLY 1 Univ ers Sodium 1 % 7-14 SMALL ity of gel 00:00: AMOUNT TO [place] 00 THE SKIN Medical EVERY 8 Branch HOURS NEEDED FOR TOPICAL PAIN RELIEF omeprazole Yes TAKE TWO Uni vers 20 mg 7-14 CAPSULES ity of capsule 00:00: BY MOUTH [place] 00 TWICE A Medical DAY FOR Branch STOMACH. *DO NOT CRUSH* Diclofenac 2020-0 Yes APPLY 1 Univ ers Sodium 1 % 7-14 SMALL ity of gel 00:00: AMOUNT TO [place] 00 THE SKIN Medical EVERY 8 Branch HOURS NEEDED FOR TOPICAL PAIN RELIEF omeprazole 2020-0 Yes TAKE TWO Uni vers 20 mg 7-14 CAPSULES ity of capsule 00:00: BY MOUTH [place] 00 TWICE A Medical DAY FOR Branch STOMACH. *DO NOT CRUSH* Diclofenac 2020-0 Yes APPLY 1 Univ ers Sodium 1 % 7-14 SMALL ity of gel 00:00: AMOUNT TO [place] 00 THE SKIN Medical EVERY 8 Branch HOURS NEEDED FOR TOPICAL PAIN RELIEF omeprazole 2020-0 Yes TAKE TWO Uni vers 20 mg 7-14 CAPSULES ity of capsule 00:00: BY MOUTH [place] 00 TWICE A Medical DAY FOR Branch STOMACH. *DO NOT CRUSH* Diclofenac 2020-0 Yes APPLY 1 Univ ers Sodium 1 % 7-14 SMALL ity of gel 00:00: AMOUNT TO [place] 00 THE SKIN Medical EVERY 8 Branch HOURS NEEDED FOR TOPICAL PAIN RELIEF omeprazole 2020-0 Yes TAKE TWO Uni vers 20 mg 7-14 CAPSULES ity of capsule 00:00: BY MOUTH [place] 00 TWICE A Medical DAY FOR Branch STOMACH. *DO NOT CRUSH* Diclofenac 2020-0 Yes APPLY 1 Univ ers Sodium 1 % 7-14 SMALL ity of gel 00:00: AMOUNT TO [place] 00 THE SKIN Medical EVERY 8 Branch HOURS NEEDED FOR TOPICAL PAIN RELIEF omeprazole 2020-0 Yes TAKE TWO Uni vers 20 mg 7-14 CAPSULES ity of capsule 00:00: BY MOUTH [place] 00 TWICE A Medical DAY FOR Branch STOMACH. *DO NOT CRUSH* Diclofenac 2020-0 Yes APPLY 1 Univ ers Sodium 1 % 7-14 SMALL ity of gel 00:00: AMOUNT TO [place] 00 THE SKIN Medical EVERY 8 Branch HOURS NEEDED FOR TOPICAL PAIN RELIEF omeprazole 2020-0 Yes TAKE TWO Uni vers 20 mg 7-14 CAPSULES ity of capsule 00:00: BY MOUTH [place] 00 TWICE A Medical DAY FOR Branch STOMACH. *DO NOT CRUSH* Diclofenac 2020-0 Yes APPLY 1 Univ ers Sodium 1 % 7-14 SMALL ity of gel 00:00: AMOUNT TO [place] 00 THE SKIN Medical EVERY 8 Branch HOURS NEEDED FOR TOPICAL PAIN RELIEF omeprazole 2020-0 Yes TAKE TWO Uni vers 20 mg 7-14 CAPSULES ity of capsule 00:00: BY MOUTH [place] 00 TWICE A Medical DAY FOR Branch STOMACH. *DO NOT CRUSH* hydrOXYzine 2020-0 Yes TAKE ONE Un [facility] 25 mg 6-14 TABLET BY ity of tablet 00:00: MOUTH AT [place] 00 BEDTIME Medical NEEDED FOR Branch SLEEP OR TAKE HALF FOR ANXIETY hydrOXYzine 2020-0 Yes TAKE ONE Un [facility] 25 mg 6-14 TABLET BY ity of tablet 00:00: MOUTH AT [place] BEDTIME Medical NEEDED FOR Branch SLEEP OR TAKE HALF FOR ANXIETY hydrOXYzine 2020-0 Yes TAKE ONE Un [facility] 25 mg 6-14 TABLET BY ity of tablet 00:00: MOUTH AT [place] BEDTIME Medical NEEDED FOR Branch SLEEP OR TAKE HALF FOR ANXIETY hydrOXYzine 2020-0 Yes TAKE ONE Un [facility]el 25 mg 6-14 TABLET BY ity of tablet 00:00: MOUTH AT [place] BEDTIME Medical NEEDED FOR Branch SLEEP OR TAKE HALF FOR ANXIETY hydrOXYzine 2020-0 Yes TAKE ONE Un [facility] 25 mg 6-14 TABLET BY ity of tablet 00:00: MOUTH AT [place] BEDTIME Medical NEEDED FOR Branch SLEEP OR TAKE HALF FOR ANXIETY hydrOXYzine 2020-0 Yes TAKE ONE Un [facility] 25 mg 6-14 TABLET BY ity of tablet 00:00: MOUTH AT [place] BEDTIME Medical NEEDED FOR Branch SLEEP OR TAKE HALF FOR ANXIETY hydrOXYzine 2020-0 Yes TAKE ONE Un [facility] 25 mg 6-14 TABLET BY ity of tablet 00:00: MOUTH AT [place] BEDTIME Medical NEEDED FOR Branch SLEEP OR TAKE HALF FOR ANXIETY hydrOXYzine 2020-0 Yes TAKE ONE Un [facility] 25 mg 6-14 TABLET BY ity of tablet 00:00: MOUTH AT [place] BEDTIME Medical NEEDED FOR Branch SLEEP OR TAKE HALF FOR ANXIETY hydrOXYzine 2020-0 Yes TAKE ONE Un [facility] 25 mg 6-14 TABLET BY ity of tablet 00:00: MOUTH AT [place] BEDTIME Medical NEEDED FOR Branch SLEEP OR TAKE HALF FOR ANXIETY hydrOXYzine 2020-0 Yes TAKE ONE Un [facility] 25 mg 6-14 TABLET BY ity of tablet 00:00: MOUTH AT [place] BEDTIME Medical NEEDED FOR Branch SLEEP OR TAKE HALF FOR ANXIETY hydrOXYzine 2020-0 Yes TAKE ONE Un [facility] 25 mg 6-14 TABLET BY ity of tablet 00:00: MOUTH AT [place] BEDTIME Medical NEEDED FOR Branch SLEEP OR TAKE HALF FOR ANXIETY propranoloL 2020-0 Yes TAKE ONE Un [facility] 10 mg 6-01 TABLET BY ity of tablet 00:00: MOUTH [place] 00 TWICE A Medical DAY FOR 1 Branch WEEKS THEN TAKE TWO TABLETS BY MOUTH TWICE A DAY FOR 1 WEEKS THEN TAKE THREE TABLETS BY MOUTH TWICE A DAY FOR 1 WEEKS THEN TAKE FOUR TABLETS BY MOUTH TWICE A DAY FOR HEART/ BLOOD PRESSURE foLIC acid 2020-0 Yes TAKE ONE Uni vers 1 mg tablet 6-01 TABLET BY ity of 00:00: MOUTH [place] 00 DAILY A Medical VITAMIN Branch SUPPLEMENT Magnesium 2020-0 Yes TAKE ONE Univ ers Oxide 420 6-01 TABLET BY ity o f mg Tab 00:00: MOUTH [place] 00 DAILY A Medical MINERAL Branch SUPPLEMENT propranoloL 2020-0 Yes TAKE ONE Un ishmael 10 mg 6-01 TABLET BY ity of tablet 00:00: MOUTH [place] 00 TWICE A Medical DAY FOR 1 Branch WEEKS THEN TAKE TWO TABLETS BY MOUTH TWICE A DAY FOR 1 WEEKS THEN TAKE THREE TABLETS BY MOUTH TWICE A DAY FOR 1 WEEKS THEN TAKE FOUR TABLETS BY MOUTH TWICE A DAY FOR HEART/ BLOOD PRESSURE foLIC acid 2020- Yes TAKE ONE Uni vers 1 mg tablet 6-01 TABLET BY ity of 00:00: MOUTH [place] 00 DAILY A Medical VITAMIN Branch SUPPLEMENT Magnesium 2020-0 Yes TAKE ONE Univ ers Oxide 420 6-01 TABLET BY ity o f mg Tab 00:00: MOUTH [place] 00 DAILY A Medical MINERAL Branch SUPPLEMENT propranoloL 2020-0 Yes TAKE ONE Un ishmael 10 mg 6-01 TABLET BY ity of tablet 00:00: MOUTH [place] 00 TWICE A Medical DAY FOR 1 Branch WEEKS THEN TAKE TWO TABLETS BY MOUTH TWICE A DAY FOR 1 WEEKS THEN TAKE THREE TABLETS BY MOUTH TWICE A DAY FOR 1 WEEKS THEN TAKE FOUR TABLETS BY MOUTH TWICE A DAY FOR HEART/ BLOOD PRESSURE foLIC acid 2020-0 Yes TAKE ONE Uni vers 1 mg tablet 6-01 TABLET BY ity of 00:00: MOUTH [place] 00 DAILY A Medical VITAMIN Branch SUPPLEMENT Magnesium 2020-0 Yes TAKE ONE Univ ers Oxide 420 6-01 TABLET BY ity o f mg Tab 00:00: MOUTH [place] 00 DAILY A Medical MINERAL Branch SUPPLEMENT propranoloL 2020-0 Yes TAKE ONE Un ishmael 10 mg 6-01 TABLET BY ity of tablet 00:00: MOUTH [place] 00 TWICE A Medical DAY FOR 1 Branch WEEKS THEN TAKE TWO TABLETS BY MOUTH TWICE A DAY FOR 1 WEEKS THEN TAKE THREE TABLETS BY MOUTH TWICE A DAY FOR 1 WEEKS THEN TAKE FOUR TABLETS BY MOUTH TWICE A DAY FOR HEART/ BLOOD PRESSURE foLIC acid 2020-0 Yes TAKE ONE Uni vers 1 mg tablet 6-01 TABLET BY ity of 00:00: MOUTH [place] 00 DAILY A Medical VITAMIN Branch SUPPLEMENT Magnesium 2020-0 Yes TAKE ONE Univ ers Oxide 420 6-01 TABLET BY ity o f mg Tab 00:00: MOUTH [place] 00 DAILY A Medical MINERAL Branch SUPPLEMENT propranoloL 2020-0 Yes TAKE ONE Un ishmael 10 mg 6-01 TABLET BY ity of tablet 00:00: MOUTH [place] 00 TWICE A Medical DAY FOR 1 Branch WEEKS THEN TAKE TWO TABLETS BY MOUTH TWICE A DAY FOR 1 WEEKS THEN TAKE THREE TABLETS BY MOUTH TWICE A DAY FOR 1 WEEKS THEN TAKE FOUR TABLETS BY MOUTH TWICE A DAY FOR HEART/ BLOOD PRESSURE foLIC acid 2020-0 Yes TAKE ONE Uni vers 1 mg tablet 6-01 TABLET BY ity of 00:00: MOUTH [place] 00 DAILY A Medical VITAMIN Branch SUPPLEMENT Magnesium 2020-0 Yes TAKE ONE Univ ers Oxide 420 6-01 TABLET BY ity o f mg Tab 00:00: MOUTH [place] 00 DAILY A Medical MINERAL Branch SUPPLEMENT propranoloL 2020-0 Yes TAKE ONE Un ishmael 10 mg 6-01 TABLET BY ity of tablet 00:00: MOUTH [place] 00 TWICE A Medical DAY FOR 1 Branch WEEKS THEN TAKE TWO TABLETS BY MOUTH TWICE A DAY FOR 1 WEEKS THEN TAKE THREE TABLETS BY MOUTH TWICE A DAY FOR 1 WEEKS THEN TAKE FOUR TABLETS BY MOUTH TWICE A DAY FOR HEART/ BLOOD PRESSURE foLIC acid 2020-0 Yes TAKE ONE Uni vers 1 mg tablet 6-01 TABLET BY ity of 00:00: MOUTH [place] 00 DAILY A Medical VITAMIN Branch SUPPLEMENT Magnesium 2020-0 Yes TAKE ONE Univ ers Oxide 420 6-01 TABLET BY ity o f mg Tab 00:00: MOUTH [place] 00 DAILY A Medical MINERAL Branch SUPPLEMENT propranoloL 2020-0 Yes TAKE ONE Un ishmael 10 mg 6-01 TABLET BY ity of tablet 00:00: MOUTH [place] 00 TWICE A Medical DAY FOR 1 Branch WEEKS THEN TAKE TWO TABLETS BY MOUTH TWICE A DAY FOR 1 WEEKS THEN TAKE THREE TABLETS BY MOUTH TWICE A DAY FOR 1 WEEKS THEN TAKE FOUR TABLETS BY MOUTH TWICE A DAY FOR HEART/ BLOOD PRESSURE foLIC acid 2020-0 Yes TAKE ONE Uni vers 1 mg tablet 6-01 TABLET BY ity of 00:00: MOUTH [place] 00 DAILY A Medical VITAMIN Branch SUPPLEMENT Magnesium 2020-0 Yes TAKE ONE Univ ers Oxide 420 6-01 TABLET BY ity o f mg Tab 00:00: MOUTH [place] 00 DAILY A Medical MINERAL Branch SUPPLEMENT propranoloL 2020-0 Yes TAKE ONE Un ishmael 10 mg 6-01 TABLET BY ity of tablet 00:00: MOUTH [place] 00 TWICE A Medical DAY FOR 1 Branch WEEKS THEN TAKE TWO TABLETS BY MOUTH TWICE A DAY FOR 1 WEEKS THEN TAKE THREE TABLETS BY MOUTH TWICE A DAY FOR 1 WEEKS THEN TAKE FOUR TABLETS BY MOUTH TWICE A DAY FOR HEART/ BLOOD PRESSURE foLIC acid 2020-0 Yes TAKE ONE Uni vers 1 mg tablet 6-01 TABLET BY ity of 00:00: MOUTH [place] 00 DAILY A Medical VITAMIN Branch SUPPLEMENT Magnesium 2020-0 Yes TAKE ONE Univ ers Oxide 420 6-01 TABLET BY ity o f mg Tab 00:00: MOUTH [place] 00 DAILY A Medical MINERAL Branch SUPPLEMENT propranoloL 2020-0 Yes TAKE ONE Un ishmael 10 mg 6-01 TABLET BY ity of tablet 00:00: MOUTH 00 TWICE A Medical DAY FOR 1 Branch WEEKS THEN TAKE TWO TABLETS BY MOUTH TWICE A DAY FOR 1 WEEKS THEN TAKE THREE TABLETS BY MOUTH TWICE A DAY FOR 1 WEEKS THEN TAKE FOUR TABLETS BY MOUTH TWICE A DAY FOR HEART/ BLOOD PRESSURE foLIC acid 2020-0 Yes TAKE ONE Uni vers 1 mg tablet 6-01 TABLET BY ity of 00:00: MOUTH 00 DAILY A Medical VITAMIN Branch SUPPLEMENT Magnesium 2020-0 Yes TAKE ONE Univ ers Oxide 420 6-01 TABLET BY ity o f mg Tab 00:00: MOUTH [place] 00 DAILY A Medical MINERAL Branch SUPPLEMENT propranoloL 2020-0 Yes TAKE ONE Un ishmael 10 mg 6-01 TABLET BY ity of tablet 00:00: MOUTH 00 TWICE A Medical DAY FOR 1 Branch WEEKS THEN TAKE TWO TABLETS BY MOUTH TWICE A DAY FOR 1 WEEKS THEN TAKE THREE TABLETS BY MOUTH TWICE A DAY FOR 1 WEEKS THEN TAKE FOUR TABLETS BY MOUTH TWICE A DAY FOR HEART/ BLOOD PRESSURE foLIC acid 2020-0 Yes TAKE ONE Uni vers 1 mg tablet 6-01 TABLET BY ity of 00:00: MOUTH [place] 00 DAILY A Medical VITAMIN Branch SUPPLEMENT Magnesium 2020-0 Yes TAKE ONE Univ ers Oxide 420 6-01 TABLET BY ity o f mg Tab 00:00: MOUTH [place] 00 DAILY A Medical MINERAL Branch SUPPLEMENT propranoloL 2021-0 Yes TAKE ONE Un ishmael 10 mg 6-01 TABLET BY ity of tablet 00:00: MOUTH [place] 00 TWICE A Medical DAY FOR 1 Branch WEEKS THEN TAKE TWO TABLETS BY MOUTH TWICE A DAY FOR 1 WEEKS THEN TAKE THREE TABLETS BY MOUTH TWICE A DAY FOR 1 WEEKS THEN TAKE FOUR TABLETS BY MOUTH TWICE A DAY FOR HEART/ BLOOD PRESSURE foLIC acid 2020-0 Yes TAKE ONE Uni vers 1 mg tablet 6-01 TABLET BY ity of 00:00: MOUTH [place] 00 DAILY A Medical VITAMIN Branch SUPPLEMENT Magnesium Yes TAKE ONE [facility] ers Oxide 420 6-01 TABLET BY ity o f mg Tab 00:00: MOUTH [place] 00 DAILY A Medical MINERAL Branch SUPPLEMENT buPROPion Yes TAKE ONE [facility] ers XL 300 mg 3-09 TABLET BY ity o f 24 hr 00:00: MOUTH [place] tablet 00 EVERY Medical MORNING Branch FOR MOOD gabapentin Yes TAKE ONE Uni vers 300 mg 3-09 CAPSULE BY ity of capsule 00:00: MOUTH AT [place] 00 BEDTIME Medical NEEDED FOR Branch SLEEP lurasidone Yes TAKE ONE Uni vers 40 mg 3-09 TABLET BY ity of tablet 00:00: MOUTH [place] 00 DAILY FOR Medical MOOD. Branch MUST TAKE WITH A MEAL. buPROPion Yes TAKE ONE Univ ers XL 300 mg 3-09 TABLET BY ity o f 24 hr 00:00: MOUTH [place] tablet 00 EVERY Medical MORNING Branch FOR MOOD gabapentin Yes TAKE ONE Uni vers 300 mg 3-09 CAPSULE BY ity of capsule 00:00: MOUTH AT [place] 00 BEDTIME Medical NEEDED FOR Branch SLEEP lurasidone Yes TAKE ONE Uni vers 40 mg 3-09 TABLET BY ity of tablet 00:00: MOUTH [place] 00 DAILY FOR Medical MOOD. Branch MUST TAKE WITH A MEAL. buPROPion Yes TAKE ONE Univ ers XL 300 mg 3-09 TABLET BY ity o f 24 hr 00:00: MOUTH [place] tablet 00 EVERY Medical MORNING Branch FOR MOOD gabapentin Yes TAKE ONE Uni vers 300 mg 3-09 CAPSULE BY ity of capsule 00:00: MOUTH AT [place] 00 BEDTIME Medical NEEDED FOR Branch SLEEP lurasidone Yes TAKE ONE Uni vers 40 mg 3-09 TABLET BY ity of tablet 00:00: MOUTH [place] 00 DAILY FOR Medical MOOD. Branch MUST TAKE WITH A MEAL. buPROPion Yes TAKE ONE [facility] ers XL 300 mg 3-09 TABLET BY ity o f 24 hr 00:00: MOUTH [place] tablet 00 EVERY Medical MORNING Branch FOR MOOD gabapentin Yes TAKE ONE Uni vers 300 mg 3-09 CAPSULE BY ity of capsule 00:00: MOUTH AT [place] 00 BEDTIME Medical NEEDED FOR Branch SLEEP lurasidone Yes TAKE ONE Uni vers 40 mg 3-09 TABLET BY ity of tablet 00:00: MOUTH [place] 00 DAILY FOR Medical MOOD. Branch MUST TAKE WITH A MEAL. buPROPion Yes TAKE ONE Univ ers XL 300 mg 3-09 TABLET BY ity o f 24 hr 00:00: MOUTH [place] tablet 00 EVERY Medical MORNING Branch FOR MOOD gabapentin Yes TAKE ONE Uni vers 300 mg 3-09 CAPSULE BY ity of capsule 00:00: MOUTH AT [place] 00 BEDTIME Medical NEEDED FOR Branch SLEEP lurasidone Yes TAKE ONE Uni vers 40 mg 3-09 TABLET BY ity of tablet 00:00: MOUTH [place] 00 DAILY FOR Medical MOOD. Branch MUST TAKE WITH A MEAL. buPROPion Yes TAKE ONE [facility] ers XL 300 mg 3-09 TABLET BY ity o f 24 hr 00:00: MOUTH [place] tablet 00 EVERY Medical MORNING Branch FOR MOOD gabapentin Yes TAKE ONE Uni vers 300 mg 3-09 CAPSULE BY ity of capsule 00:00: MOUTH AT [place] 00 BEDTIME Medical NEEDED FOR Branch SLEEP lurasidone Yes TAKE ONE Uni vers 40 mg 3-09 TABLET BY ity of tablet 00:00: MOUTH [place] 00 DAILY FOR Medical MOOD. Branch MUST TAKE WITH A MEAL. buPROPion Yes TAKE ONE [facility] ers XL 300 mg 3-09 TABLET BY ity o f 24 hr 00:00: MOUTH [place] tablet 00 EVERY Medical MORNING Branch FOR MOOD gabapentin Yes TAKE ONE Uni vers 300 mg 3-09 CAPSULE BY ity of capsule 00:00: MOUTH AT [place] 00 BEDTIME Medical NEEDED FOR Branch SLEEP lurasidone Yes TAKE ONE Uni vers 40 mg 3-09 TABLET BY ity of tablet 00:00: MOUTH [place] 00 DAILY FOR Medical MOOD. Branch MUST TAKE WITH A MEAL. buPROPion Yes TAKE ONE Univ ers XL 300 mg 3-09 TABLET BY ity o f 24 hr 00:00: MOUTH [place] tablet 00 EVERY Medical MORNING Branch FOR MOOD gabapentin Yes TAKE ONE Uni vers 300 mg 3-09 CAPSULE BY ity of capsule 00:00: MOUTH AT [place] 00 BEDTIME Medical NEEDED FOR Branch SLEEP lurasidone Yes TAKE ONE Uni vers 40 mg 3-09 TABLET BY ity of tablet 00:00: MOUTH [place] 00 DAILY FOR Medical MOOD. Branch MUST TAKE WITH A MEAL. buPROPion Yes TAKE ONE [facility] ers XL 300 mg 3-09 TABLET BY ity o f 24 hr 00:00: MOUTH [place] tablet 00 EVERY Medical MORNING Branch FOR MOOD gabapentin Yes TAKE ONE Uni vers 300 mg 3-09 CAPSULE BY ity of capsule 00:00: MOUTH AT [place] 00 BEDTIME Medical NEEDED FOR Branch SLEEP lurasidone Yes TAKE ONE Uni vers 40 mg 3-09 TABLET BY ity of tablet 00:00: MOUTH [place] 00 DAILY FOR Medical MOOD. Branch MUST TAKE WITH A MEAL. buPROPion Yes TAKE ONE [facility] ers XL 300 mg 3-09 TABLET BY ity o f 24 hr 00:00: MOUTH [place] tablet 00 EVERY Medical MORNING Branch FOR MOOD gabapentin Yes TAKE ONE Uni vers 300 mg 3-09 CAPSULE BY ity of capsule 00:00: MOUTH AT [place] 00 BEDTIME Medical NEEDED FOR Branch SLEEP lurasidone Yes TAKE ONE Uni vers 40 mg 3-09 TABLET BY ity of tablet 00:00: MOUTH [place] 00 DAILY FOR Medical MOOD. Branch MUST TAKE WITH A MEAL. buPROPion Yes TAKE ONE [facility] ers XL 300 mg 3-09 TABLET BY ity o f 24 hr 00:00: MOUTH [place] tablet 00 EVERY Medical MORNING Branch FOR MOOD gabapentin Yes TAKE ONE Uni vers 300 mg 3-09 CAPSULE BY ity of capsule 00:00: MOUTH AT [place] 00 BEDTIME Medical NEEDED FOR Branch SLEEP lurasidone Yes TAKE ONE Uni vers 40 mg 3-09 TABLET BY ity of tablet 00:00: MOUTH [place] 00 DAILY FOR Medical MOOD. Branch MUST TAKE WITH A MEAL. SUMAtriptan Yes INJECT [facility] ers 6 mg/0.5 mL 1-26 6MG/0.5ML ity of injection 00:00: UNDER THE [place] 00 SKIN ONCE Medical AT ONSET Branch OF HEADACHE. MAY REPEAT ONE TIME AFTER 1 HOUR IF NO RELIEF. DO NOT EXCEED 2 INJECTIONS IN 24 HOURS. AT ONSET OF HEADACHE. MAY REPEAT ONE TIME AFTER 1 HOUR IF NO RELIEF. DO NOT EXCEED 2 INJECTIONS IN 24 HOURS. SUMAtriptan Yes INJECT [facility] ers 6 mg/0.5 mL 1-26 6MG/0.5ML ity of injection 00:00: UNDER THE [place] 00 SKIN ONCE Medical AT ONSET Branch OF HEADACHE. MAY REPEAT ONE TIME AFTER 1 HOUR IF NO RELIEF. DO NOT EXCEED 2 INJECTIONS IN 24 HOURS. AT ONSET OF HEADACHE. MAY REPEAT ONE TIME AFTER 1 HOUR IF NO RELIEF. DO NOT EXCEED 2 INJECTIONS IN 24 HOURS. SUMAtriptan 1-0 Yes INJECT [facility] ers 6 mg/0.5 mL 1-26 6MG/0.5ML ity of injection 00:00: UNDER THE [place] 00 SKIN ONCE Medical AT ONSET Branch OF HEADACHE. MAY REPEAT ONE TIME AFTER 1 HOUR IF NO RELIEF. DO NOT EXCEED 2 INJECTIONS IN 24 HOURS. AT ONSET OF HEADACHE. MAY REPEAT ONE TIME AFTER 1 HOUR IF NO RELIEF. DO NOT EXCEED 2 INJECTIONS IN 24 HOURS. SUMAtriptan 1-0 Yes INJECT [facility] ers 6 mg/0.5 mL 1-26 6MG/0.5ML ity of injection 00:00: UNDER THE [place] 00 SKIN ONCE Medical AT ONSET Branch OF HEADACHE. MAY REPEAT ONE TIME AFTER 1 HOUR IF NO RELIEF. DO NOT EXCEED 2 INJECTIONS IN 24 HOURS. AT ONSET OF HEADACHE. MAY REPEAT ONE TIME AFTER 1 HOUR IF NO RELIEF. DO NOT EXCEED 2 INJECTIONS IN 24 HOURS. SUMAtriptan 1-0 Yes INJECT [facility] ers 6 mg/0.5 mL 1-26 6MG/0.5ML ity of injection 00:00: UNDER THE [place] 00 SKIN ONCE Medical AT ONSET Branch OF HEADACHE. MAY REPEAT ONE TIME AFTER 1 HOUR IF NO RELIEF. DO NOT EXCEED 2 INJECTIONS IN 24 HOURS. AT ONSET OF HEADACHE. MAY REPEAT ONE TIME AFTER 1 HOUR IF NO RELIEF. DO NOT EXCEED 2 INJECTIONS IN 24 HOURS. SUMAtriptan 1-0 Yes INJECT [facility] ers 6 mg/0.5 mL 1-26 6MG/0.5ML ity of injection 00:00: UNDER THE [place] 00 SKIN ONCE Medical AT ONSET Branch OF HEADACHE. MAY REPEAT ONE TIME AFTER 1 HOUR IF NO RELIEF. DO NOT EXCEED 2 INJECTIONS IN 24 HOURS. AT ONSET OF HEADACHE. MAY REPEAT ONE TIME AFTER 1 HOUR IF NO RELIEF. DO NOT EXCEED 2 INJECTIONS IN 24 HOURS. SUMAtriptan 1-0 Yes INJECT [facility] ers 6 mg/0.5 mL 1-26 6MG/0.5ML ity of injection 00:00: UNDER THE [place] 00 SKIN ONCE Medical AT ONSET Branch OF HEADACHE. MAY REPEAT ONE TIME AFTER 1 HOUR IF NO RELIEF. DO NOT EXCEED 2 INJECTIONS IN 24 HOURS. AT ONSET OF HEADACHE. MAY REPEAT ONE TIME AFTER 1 HOUR IF NO RELIEF. DO NOT EXCEED 2 INJECTIONS IN 24 HOURS. SUMAtriptan 2020-0 Yes INJECT [facility] ers 6 mg/0.5 mL 1-26 6MG/0.5ML ity of injection 00:00: UNDER THE [place] 00 SKIN ONCE Medical AT ONSET Branch OF HEADACHE. MAY REPEAT ONE TIME AFTER 1 HOUR IF NO RELIEF. DO NOT EXCEED 2 INJECTIONS IN 24 HOURS. AT ONSET OF HEADACHE. MAY REPEAT ONE TIME AFTER 1 HOUR IF NO RELIEF. DO NOT EXCEED 2 INJECTIONS IN 24 HOURS. SUMAtriptan 2020-0 Yes INJECT [facility] ers 6 mg/0.5 mL 1-26 6MG/0.5ML ity of injection 00:00: UNDER THE [place] 00 SKIN ONCE Medical AT ONSET Branch OF HEADACHE. MAY REPEAT ONE TIME AFTER 1 HOUR IF NO RELIEF. DO NOT EXCEED 2 INJECTIONS IN 24 HOURS. AT ONSET OF HEADACHE. MAY REPEAT ONE TIME AFTER 1 HOUR IF NO RELIEF. DO NOT EXCEED 2 INJECTIONS IN 24 HOURS. SUMAtriptan 2020-0 Yes INJECT [facility] ers 6 mg/0.5 mL 1-26 6MG/0.5ML ity of injection 00:00: UNDER THE [place] 00 SKIN ONCE Medical AT ONSET Branch OF HEADACHE. MAY REPEAT ONE TIME AFTER 1 HOUR IF NO RELIEF. DO NOT EXCEED 2 INJECTIONS IN 24 HOURS. AT ONSET OF HEADACHE. MAY REPEAT ONE TIME AFTER 1 HOUR IF NO RELIEF. DO NOT EXCEED 2 INJECTIONS IN 24 HOURS. SUMAtriptan 2020-0 Yes INJECT [facility] ers 6 mg/0.5 mL 1-26 6MG/0.5ML ity of injection 00:00: UNDER THE [place] 00 SKIN ONCE Medical AT ONSET Branch OF HEADACHE. MAY REPEAT ONE TIME AFTER 1 HOUR IF NO RELIEF. DO NOT EXCEED 2 INJECTIONS IN 24 HOURS. AT ONSET OF HEADACHE. MAY REPEAT ONE TIME AFTER 1 HOUR IF NO RELIEF. DO NOT EXCEED 2 INJECTIONS IN 24 HOURS. Riboflavin 2019- Yes TAKE FOUR [facility]el 100 mg Tab 2-01 TABLETS BY ity of 00:00: MOUTH [place] 00 DAILY A Medical VITAMIN Branch SUPPLEMENT Riboflavin 2019- Yes TAKE FOUR Un ishmael 100 mg Tab 2-01 TABLETS BY ity of 00:00: MOUTH [place] 00 DAILY A Medical VITAMIN Branch SUPPLEMENT Riboflavin 2019-08 Yes TAKE FOUR Un ishmael 100 mg Tab 2-01 TABLETS BY ity of 00:00: MOUTH [place] 00 DAILY A Medical VITAMIN Branch SUPPLEMENT Riboflavin 2019- Yes TAKE FOUR Un ishmael 100 mg Tab 2-01 TABLETS BY ity of 00:00: MOUTH [place] 00 DAILY A Medical VITAMIN Branch SUPPLEMENT Riboflavin 2019- Yes TAKE FOUR Un ishmael 100 mg Tab 2-01 TABLETS BY ity of 00:00: MOUTH [place] 00 DAILY A Medical VITAMIN Branch SUPPLEMENT Riboflavin 2019- Yes TAKE FOUR Un ishmael 100 mg Tab 2-01 TABLETS BY ity of 00:00: MOUTH [place] 00 DAILY A Medical VITAMIN Branch SUPPLEMENT Riboflavin 2019- Yes TAKE FOUR Un ishmael 100 mg Tab 2-01 TABLETS BY ity of 00:00: MOUTH [place] 00 DAILY A Medical VITAMIN Branch SUPPLEMENT Riboflavin 2019- Yes TAKE FOUR Un ishmael 100 mg Tab 2-01 TABLETS BY ity of 00:00: MOUTH [place] 00 DAILY A Medical VITAMIN Branch SUPPLEMENT Riboflavin 2019- Yes TAKE FOUR Un ishmael 100 mg Tab 2-01 TABLETS BY ity of 00:00: MOUTH [place] 00 DAILY A Medical VITAMIN Branch SUPPLEMENT Riboflavin 2019- Yes TAKE FOUR Un ishmael 100 mg Tab 2-01 TABLETS BY ity of 00:00: MOUTH [place] 00 DAILY A Medical VITAMIN Branch SUPPLEMENT Riboflavin 2019- Yes TAKE FOUR Un ishmael 100 mg Tab 2-01 TABLETS BY ity of 00:00: MOUTH [place] 00 DAILY A Medical VITAMIN Branch SUPPLEMENT Vital Signs Vital Name Observation Time Observation Value Comments Source Systolic blood 2021-04-27 19:59:00 123 mm[Hg] Univer sity [facility] Diastolic blood 2021-04-27 19:59:00 79 mm[Hg] Unive [facility] Heart rate 2021-04-27 19:59:00 74 /min [facility] Body temperature 2021-04-27 19:59:00 36.17 Catrina [facility] Respiratory rate 2021-04-27 19:59:00 18 /min [facility] Body height 2021-04-27 19:59:00 154.9 cm [facility] Body weight 2021-04-27 19:59:00 71.578 kg [facility] BMI 2021-04-27 19:59:00 29.82 kg/m2 Universi ty [facility] Oxygen saturation in 2021-04-27 19:59:00 98 /min [facility] of Arterial blood by [facility] Pulse oximetry Branch Systolic blood 2021-03-23 18:48:00 123 mm[Hg] Univer sity of pressure [facility] Diastolic blood 2021-03-23 18:48:00 75 mm[Hg] Unive rsity of pressure [facility] Heart rate 2021-03-23 18:48:00 70 /min Universi ty of [facility] Body temperature 2021-03-23 18:48:00 36.56 Catrina [facility] Respiratory rate 2021-03-23 18:48:00 18 /min [facility] Body height 2021-03-23 18:48:00 154.9 cm Universi ty [facility] Body weight 2021-03-23 18:48:00 71.578 kg Universi ty [facility] BMI 2021-03-23 18:48:00 29.82 kg/m2 Universi ty [facility] Oxygen saturation in 2021-03-23 18:48:00 99 /min [facility] Arterial blood by [facility] Pulse oximetry Branch Procedures Procedure Date / Time Performing Clinician Source Performed AUTHORIZATION FOR 2021-05-23 05:01:00 Doctor Unassigned, No [facility] ASSIGNMENT OF BENEFITS 2021-04-11 18:02:12 Doctor Unassigned, No [facility] EXTERNAL PROVIDER 2021-03-28 05:01:00 Doctor Unassigned, No [facility] [place] Encounters Start End Encounter Admission Attending Care Care Encounter Source Date/Time Date/Time Type Type Clinicians Facility Department ID 2021-06-01 2021-06-01 Outpatient GIAN OTOOLE [facility] [id number] Univers 13:40:00 13:40:00 GIAN OTOOLE [id number] ity [facility] 2021-06-01 2021-06-01 Outpatient R GIAN OTOOLE [facility] [id number] Univers 13:40:00 13:40:00 GIAN OTOOLE [facility] 2021-05-23 2021-05-23 Orders Doctor HELDER [id number] Univers 00:00:00 00:00:00 Only Unassigned, JONATHAN [id number] [facility] [id number] [place] [id number] [facility] 009 Branch 2021-04-27 2021-04-27 Outpatient R GIAN OTOOLE [facility] [id number] Univers 15:00:00 15:08:48 [facility] 2021-04-27 2021-04-27 Office Xiang [facility] [id number] Univers 14:51:01 15:08:48 Visit Gian Granados [id number] ity [facility] [id number] [facility] s [facility] [phone] [address] 2021-04-27 2021-04-27 Outpatient R GIAN OTOOLE [facility] [id number] Univers 15:00:00 15:00:00 GIAN OTOOLE [id number] [facility] 2021-04-14 2021-04-14 Outpatient R [facility] [id number] Univers 19:30:00 19:30:00 [id number] [facility] 2021-04-14 2021-04-14 Outpatient R GIAN OTOOLE [facility] [id number] Univers 19:30:00 19:30:00 [facility] 2021-04-14 2021-04-14 Bindery Manager 1, [facility] Sleep Lab Bed [facility] [id number]. [id number] Univers 15:06:03 17:36:03 Visit Gian Otoole 350.1.13. 10 ity [facility] [id number] [place] [id number] [facility] 193 Branch 2021-04-11 2021-04-11 Laboratory Only, Adc Test [facility] [id number]. [id number] Univers 13:02:22 13:17:22 Only Gian Otoole 350.1.13. 10 ity of [place] [id number] [place] [id number] [facility] [address] [place] 2021-04-11 2021-04-11 Outpatient R [facility] [id number] Univers 13:15:00 13:15:00 [id number] ity of [facility] 2021-04-11 2021-04-11 Outpatient R GIAN OTOOLE [facility] [id number] Univers 13:15:00 13:15:00 GIAN OTOOLE ity [facility] 2021-04-11 2021-04-11 Orders Doctor HELDER [id number] Univers 00:00:00 00:00:00 Only Unassigned, JONATHAN [id number] ity of [facility] [id number] [place] [id number] [address] 2021-03-28 2021-03-28 Orders Doctor HELDER [id number] Univers 00:00:00 00:00:00 Only Unassigned, JONATHAN [id number] ity of [facility] [id number] [place] [phone] [address] 2021-03-23 2021-03-23 Office Xiang [facility] [id number] Univers 13:37:10 13:57:10 Visit Gian Granados [id number] ity of [id number] [place] [facility] [id number] [place] [id number] [facility] 2021-03-23 2021-03-23 Outpatient R GIAN OTOOLE [facility] [id number] Univers 13:40:00 13:40:00 GIAN OTOOLE [id number] ity of [facility] 2021-03-23 2021-03-23 Outpatient R GIAN OTOOLE [facility] [id number] Univers 13:40:00 13:40:00 GIAN OTOOLE [facility] 2020-02-25 2020-02-25 Laboratory Lab, Adc Fam Pob I [facility] [id number]. [id number] Univers 13:37:11 13:57:11 Only Marita Cool [facility] [id number] [facility] [id number] [place] Professio [id number] [place] [address] 2020-02-25 2020-02-25 Outpatient R GEOVANNA [facility] [id number] [facility] 13:40:00 13:40:00 MARITA holloway [facility] Results This patient has no known results.
[2022-01-09] MEDS ORDERED: HYDROCODONE/APAP 5/325 MG TAB ONE ×2 (12:22→13:56)
--- NOTE | 2022-01-09 12:52 | RAD REPORT ---
EXAM DESCRIPTION: RAD - Ankle Left 3 View - 01/09/2022 12:44 pm CLINICAL HISTORY: PAIN COMPARISON: No comparisons FINDINGS: Oblique fracture is present through the distal fibula at the level of the tibiotalar joint line. The fibular fracture shows no measurable distraction or angulation component. Medial malleolus is intact. On 2 there is a fracture line seen that may be the superimposed fibular fracture. There a re questionable disruption of the posterior cortex of the tibial plafond. A nondisplaced posterior ma lleolus fracture is not excluded. The presence of this second fraction air would not likely alter med ical management of the fibula fracture. Ankle mortise is maintained. No dislocation or subluxation abnormalities. Subtalar joint space is nor mal. No joint effusion seen. No joint space narrowing. Lateral and anterior soft tissue swelling are present. No foreign body. IMPRESSION: Nondisplaced, nonangulated distal left fibular fracture. Questionable nondisplaced posterior malleolus fracture. This fracture is not definitive in the additi on of this fracture would not likely alter medical management.
--- NOTE | 2022-01-09 12:54 | RAD REPORT ---
EXAM DESCRIPTION: RAD - Foot Left 3 View - 01/09/2022 12:44 pm CLINICAL HISTORY: PAIN, trip and fall COMPARISON: Foot Left 3 View dated 12/15/2017 FINDINGS: No fracture, dislocation or periosteal reaction. No acute or destructive bony process. Po stsurgical hardware present in the first metatarsal head. No plantar spur is present. Ankle fracture findings are detailed on separate report. No air or foreign body in the soft tissues. IMPRESSION: No acute left foot finding. Fractures at the ankle are detailed in separate report.
--- NOTE | 2022-01-09 14:26 | EDPHYS ---
Physician Documentation [facility] Name: Mariluz Infante Age: 31 yrs Sex: Female : 1990 Arrival Date: 01/09/2022 Time: 11:41 Bed Treatment Private MD: ED Physician Joe Peñaloza HPI: 01/09 12:14 This 31 yrs old Female presents to ER via Wheelchair with complaints of Ankle Injury. ms3 12:14 The patient presents with an injury, pain, that is acute. The complaints affect the ms3 left ankle. Onset: The symptoms/episode began/occurred 1 hour(s) ago. Context: The problem was sustained at home, resulted from the patient falling, down stairs, The patient is unable to bear weight. The patient is not able to ambulate. Associated signs and symptoms: Pertinent negatives: nausea, vomiting. Modifying factors: The symptoms are alleviated by nothing, the symptoms are aggravated by weight bearing, movement. Severity of symptoms: At their worst the symptoms were severe, a " 10" out of "10", in the emergency department the symptoms are unchanged. 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 - Social history:: Smoking status: Patient reports the use of cigarette tobacco products, smokes one-half pack cigarettes per day. ROS: 12:16 Constitutional: Negative for fever, and chills. Neck: Negative for injury, pain, and ms3 swelling, Cardiovascular: Negative for chest pain, and palpitations. Respiratory: Negative for shortness of breath, cough, wheezing, and pleuritic chest pain, Abdomen/GI: Negative for abdominal pain, nausea, vomiting, diarrhea, and constipation, Skin: Negative for injury, rash, and discoloration. 12:16 MS/extremity: Positive for pain. Exam: 12:16 Constitutional: This is a well developed, well nourished patient who is awake, alert, ms3 and in no acute distress. Head/Face: Normocephalic, atraumatic. Neck: Trachea midline, no cervical lymphadenopathy. Supple, full range of motion without nuchal rigidity, or vertebral point tenderness. No Meningismus. Chest/axilla: Normal chest wall appearance and motion. Nontender with no deformity. Cardiovascular: Regular rate and rhythm with a normal S1 and S2. No gallops, murmurs, or rubs. Normal PMI, no JVD. No pulse deficits. Respiratory: Lungs have equal breath sounds bilaterally, clear to auscultation and percussion. No rales, rhonchi or wheezes noted. No increased work of breathing, no retractions or nasal flaring. Abdomen/GI: Soft, non-tender, with normal bowel sounds. No distension or tympany. No guarding or rebound. No evidence of tenderness throughout. Psych: Awake, alert, with orientation to person, place and time. Behavior, mood, and affect are within normal limits. 12:16 Musculoskeletal/extremity: Extremities: noted in the Left ankle: decreased ROM, ecchymosis, pain, tenderness, ROM: limited active range of motion due to pain, in the Left ankle, limited passive range of motion due to pain, in the Left ankle, Sensation intact. Compartment Syndrome exam of affected extremity: is normal. Vital Signs: 12:06 BP 132 / 80; Pulse 89; Resp 17 S; Temp 98.4(TE); Pulse Ox 97% on R/A; Weight 70.31 kg jd3 (R); Height 5 ft. 1 in. (154.94 cm) (R); Pain 10/10; 12:06 Body Mass Index 29.29 (70.31 kg, 154.94 cm) jd3 MDM: 12:13 Patient medically screened. ms3 12:16 Differential diagnosis: fracture, sprain. ms3 22:03 Data reviewed: vital signs, nurses notes, radiologic studies. Counseling: I had a ms3 detailed discussion with the patient and/or guardian regarding: the historical points, exam findings, and any diagnostic results supporting the discharge/admit diagnosis, radiology results, the need for outpatient follow up, to return to the emergency department if symptoms worsen or persist or if there are any questions or concerns that arise at home. ED course: Discussed xray results , PE findings with patient. Patient to follow up with Dr Stevens in 2-3 days. Patient understands/ agrees with plan. All questions answered. Return precautions given to include worsening symptoms, or any other concerns. Patient is improved, in NAD, non-toxic appearing, compartment syndrome not present, N/V intact in LLE.. 01/09 12:14 Order name: Ankle Left 3 View XRAY; Complete Time: 12:57 ms3 01/09 12:14 Order name: Foot Left 3 View XRAY; Complete Time: 12:57 ms3 Administered Medications: 12:21 Drug: HYDROcodone-acetaminophen 5 mg-325 mg 1 tabs Route: PO; 6 13:59 Drug: HYDROcodone-acetaminophen 5 mg-325 mg 1 tabs Route: PO; Disposition Summary: 01/09/22 14:25 Discharge Ordered Location: Home ms3 Condition: Stable ms3 Diagnosis - Nondisplaced fracture of lateral malleolus of left fibula ms3 - Fall (on) (from) other stairs and steps ms3 - Pain in ankle and joints of foot ms3 Followup: ms3 - With: Girish Stevens MD - When: 2 - 3 days - Reason: Recheck today's complaints Discharge Instructions: - Discharge Summary Sheet ms3 - Ankle Fracture ms3 Forms: - Medication Reconciliation Form ms3 - Thank You Letter ms3 - Antibiotic Education ms3 - Prescription Opioid Use ms3 Prescriptions: - Tylenol-Codeine #3 300 mg-30 mg Oral - take 1 tablet by ORAL route every 4-6 hours for 3 days; 15 tablet; Refills: 0, ms3 Product Selection Permitted Signatures: Dispatcher [employer] Natasha Elder, RN MARIANNE iw Chris Monk RN RN jd3 Joe Peñaloza DO DO ms3 Pamella Matute RN RN jh6
--- NOTE | 2022-01-09 14:26 | ER ---
Nurse's Notes [facility] Name: Mariluz Infante Age: 31 yrs Sex: Female : 1990 Arrival Date: 01/09/2022 Time: 11:41 Bed Treatment Private MD: Diagnosis: Nondisplaced fracture of lateral malleolus of left fibula;Fall (on) (from) other stairs and steps;Pain in ankle and joints of foot Presentation: 01/09 12:04 Chief complaint: Patient states: "about a hour ago I slipped going down the stair and jd3 my root foot immediately started swelling and I can't put pressure on it.". Coronavirus screen: At this time, the client does not indicate any symptoms associated with coronavirus-19. Ebola Screen: No symptoms or risks identified at this time. Initial Sepsis Screen: Does the patient meet any 2 criteria? No. Patient's initial sepsis screen is negative. Does the patient have a suspected source of infection? No. Patient's initial sepsis screen is negative. Risk Assessment: Do you want to hurt yourself or someone else? Patient reports no desire to harm self or others. Onset of symptoms was January 09, 2022. 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 - Social history:: Smoking status: Patient reports the use of cigarette tobacco products, smokes one-half pack cigarettes per day. Screenin:27 Abuse screen: Denies threats or abuse. Denies injuries from another. Nutritional jh6 screening: No deficits noted. Tuberculosis screening: No symptoms or risk factors identified. Fall Risk None identified. Assessment: 10:15 General: Appears uncomfortable, Behavior is calm, cooperative. jh6 10:15 Pain: Complains of pain in left lateral ankle and anterior aspect of left ankle Pain jh6 does not radiate. Pain currently is 8 out of 10 on a pain scale. Quality of pain is described as aching, throbbing, Pain began suddenly, Is continuous, Aggravated by increased activity, repositioning, weight bearing. Musculoskeletal: Swelling present in left lateral ankle, left medial ankle and anterior aspect of left ankle Reports pain in left lateral ankle, left Achilles, left medial ankle and anterior aspect of left ankle. 13:30 Reassessment: Patient appears in no apparent distress at this time. No changes from iw previously documented assessment. Patient and/or family updated on plan of care and expected duration. Pain level reassessed. Patient is alert, oriented x 3, equal unlabored respirations, skin warm/dry/pink. Vital Signs: 12:06 BP 132 / 80; Pulse 89; Resp 17 S; Temp 98.4(TE); Pulse Ox 97% on R/A; Weight 70.31 kg jd3 (R); Height 5 ft. 1 in. (154.94 cm) (R); Pain 10/10; 12:06 Body Mass Index 29.29 (70.31 kg, 154.94 cm) jd3 ED Course: 11:41 Patient arrived in ED. as 12:05 Triage completed. jd3 12:06 Joe Peñaloza DO is Attending Physician. ms3 12:07 Pamella Matute, MARIANNE is Primary Nurse. jh6 12:07 Arm band placed on. jd3 12:23 ice pack to l ankle. jh6 12:27 Bed in low position. Side rails up X 1. Adult w/ patient. jh6 12:27 No provider procedures requiring assistance completed. jh6 12:45 Ankle Left 3 View XRAY In Process Unspecified. EDMS 12:45 Foot Left 3 View XRAY In Process Unspecified. EDMS 12:46 X-ray completed. Patient tolerated procedure well. mh1 13:39 Crutch training done. Orthoglass splint: Posterior short lleg splint applied on left em1 leg. stirrup splint applied on left leg. 14:25 Girish Stevens MD is Referral Physician. ms3 14:48 Patient did not have IV access during this emergency room visit. iw Administered Medications: 12:21 Drug: HYDROcodone-acetaminophen 5 mg-325 mg 1 tabs Route: PO; jh6 13:59 Drug: HYDROcodone-acetaminophen 5 mg-325 mg 1 tabs Route: PO; iw Outcome: 14:25 Discharge ordered by . ms3 14:48 Discharged to home with crutches. iw 14:48 Condition: stable 14:48 Discharge instructions given to patient, Instructed on discharge instructions, follow up and referral plans. medication usage, crutch walking, Demonstrated understanding of instructions, follow-up care, medications, Prescriptions given X 1. 14:49 Patient left the ED. iw Signatures: Dispatcher [employer] EDMS Bee Niño 1 Claire Lizarraga Irene, RN RN iw iZa, Chris Schaffer RN RN angeld3 Joe Peñaloza DO DO ms3 Pamella Matute RN RN jh6
[2022-01-09 15:00] VITALS: BP 132/80; TEMP 98.4; O2SAT 97
== END 2022-01-09 14:49 | disposition home or self-care (01) ==
LOC: ER 11:38
DX: S82.65XA Nondisplaced fracture of lateral malleolus of left fibula, initial encounter for closed fracture (principal); W10.9XXA Fall (on) (from) unspecified stairs and steps, initial encounter; Y93.9 Activity, unspecified; Y92.9 Unspecified place or not applicable; M25.572 Pain in left ankle and joints of left foot; F41.8 Other specified anxiety disorders; F43.10 Post-traumatic stress disorder, unspecified; M19.90 Unspecified osteoarthritis, unspecified site; F17.210 Nicotine dependence, cigarettes, uncomplicated
CPT/HCPCS: 99284

== ENCOUNTER 2022-03-26 00:45 | Emergency (ER) | payer OTHER ==
--- OUTSIDE RECORDS SUMMARY | 2022-03-26 00:50 | XMS REPORT | Continuity of Care Document ---
:1990 Author Organization [facility] t Address [address] [place] [address] Care Team Providers Name Role Phone [facility] Primary Care Physician Unavailable GIAN OTOOLE Attending Clinician Unavailable GIAN OTOOLE Attending Clinician Unavailable Doctor Unassigned, [place] Attending Clinician Unavailable Gian Otoole MD Attending Clinician 1, [facility] Sleep Lab Bed Attending Clinician Unavailable Only, Adc Test Attending Clinician Unavailable Lab, Adc Fam Pob I Attending Clinician Unavailable Marita Shah Attending Clinician MARITA AUSTIN Attending Clinician Unavailable Payers Payer Name Policy Type Policy Number Effective Date Expiration Date Leif SIMMONS [id number] 2021 ADMINISTRATION 00:00:00 [employer] [id number] 2021 ADMINISTRATION 00:00:00 Problems Condition Condition Condition Status Onset Resolution Last Treating Co mments Source Name Details Category Date Date Treatment Clinician Date No known No known Disease Unive rs active active ity of problems problems [facility] Allergies, Adverse Reactions, Alerts Allergy Allergy Status Severity Reaction(s) Onset Inactive Treating Comm ents Source Name Type Date Date Clinician NO KNOWN Drug Active Univers ALLERGIE Class ity of [facility] Social History Social Habit Start Date Stop Date Quantity Comments Source Exposure to Not sure [facility] SARS-CoV-2 (event) Medica l Branch Sex Assigned At [birth year] [facility] 00:00:00 00:00:00 [place] Smoking Status Start Date Stop Date Source Unknown if ever smoked [facility] [place] [facility] Medications Ordered Filled Start Stop Current Ordering [...] SMALL ity of gel 00:00: AMOUNT TO [place] 00 THE SKIN Medical EVERY 8 Branch HOURS NEEDED FOR TOPICAL PAIN RELIEF omeprazole Yes TAKE TWO Uni vers 20 mg 7-14 CAPSULES ity of capsule 00:00: BY MOUTH [place] 00 TWICE A Medical DAY FOR Branch STOMACH. *DO NOT CRUSH* Diclofenac Yes APPLY 1 Univ ers Sodium 1 % 7-14 SMALL ity of gel 00:00: AMOUNT TO [place] 00 THE SKIN Medical EVERY 8 Branch [...] ity of capsule 00:00: BY MOUTH [place] TWICE A Medical DAY FOR Branch STOMACH. *DO NOT CRUSH* Diclofenac Yes APPLY 1 Univ ers Sodium 1 % 7-14 SMALL ity of gel 00:00: AMOUNT TO [place] 00 THE SKIN Medical EVERY 8 Branch HOURS NEEDED FOR TOPICAL PAIN RELIEF omeprazole Yes TAKE TWO Uni vers 20 mg 7-14 CAPSULES ity of capsule 00:00: BY MOUTH [place] 00 TWICE A Medical DAY FOR Branch STOMACH. *DO NOT CRUSH* Diclofenac Yes APPLY 1 Univ ers Sodium 1 % 7-14 SMALL ity of gel 00:00: AMOUNT TO [place] 00 THE SKIN Medical EVERY 8 Branch HOURS NEEDED FOR TOPICAL PAIN RELIEF omeprazole 2021-0 Yes TAKE TWO Uni vers 20 mg 7-14 CAPSULES ity of capsule 00:00: BY MOUTH [place] 00 TWICE A Medical DAY FOR Branch STOMACH. *DO NOT CRUSH* Diclofenac 2020-0 Yes APPLY 1 Univ ers Sodium 1 % 7-14 SMALL ity of gel 00:00: AMOUNT TO [place] 00 THE SKIN Medical EVERY 8 Branch HOURS NEEDED FOR TOPICAL PAIN RELIEF omeprazole 2020-0 Yes TAKE TWO Uni vers 20 mg 7-14 CAPSULES ity of capsule 00:00: BY MOUTH [place] 00 TWICE A Medical DAY FOR Branch STOMACH. *DO NOT CRUSH* Diclofenac 2020-0 Yes APPLY 1 Univ ers Sodium 1 % 7-14 SMALL ity of gel 00:00: AMOUNT TO [place] 00 THE SKIN Medical EVERY 8 Branch HOURS NEEDED FOR TOPICAL PAIN RELIEF omeprazole 2020-0 Yes TAKE TWO Uni vers 20 mg 7-14 CAPSULES ity of capsule 00:00: BY MOUTH [place] 00 TWICE A Medical DAY FOR Branch STOMACH. *DO NOT CRUSH* Diclofenac 2020-0 Yes APPLY 1 Univ ers Sodium 1 % 7-14 SMALL ity of gel 00:00: AMOUNT TO [place] 00 THE SKIN Medical EVERY 8 Branch HOURS NEEDED FOR TOPICAL PAIN RELIEF omeprazole 2020-0 Yes TAKE TWO Uni vers 20 mg 7-14 CAPSULES ity of capsule 00:00: BY MOUTH [place] [address] TWICE A Medical DAY FOR Branch STOMACH. *DO NOT CRUSH* Diclofenac 2020-0 Yes APPLY 1 Univ ers Sodium 1 % 7-14 SMALL ity of gel 00:00: AMOUNT TO [place] 00 THE SKIN Medical EVERY 8 Branch HOURS NEEDED FOR TOPICAL PAIN RELIEF omeprazole 2020-0 Yes TAKE TWO Uni vers 20 mg 7-14 CAPSULES ity of capsule 00:00: BY MOUTH [place] [address] TWICE A Medical DAY FOR Branch STOMACH. *DO NOT CRUSH* Diclofenac 2020-0 Yes APPLY 1 Univ ers Sodium 1 % 7-14 SMALL ity of gel 00:00: AMOUNT TO [place] 00 THE SKIN Medical EVERY 8 Branch HOURS NEEDED FOR TOPICAL PAIN RELIEF omeprazole 2020-0 Yes TAKE TWO Uni vers 20 mg 7-14 CAPSULES ity of capsule 00:00: BY MOUTH [place] [address] TWICE A Medical DAY FOR Branch STOMACH. *DO NOT CRUSH* hydrOXYzine Yes TAKE ONE Un ishmael 25 mg 6-14 TABLET BY ity of tablet 00:00: MOUTH AT [place] 00 BEDTIME Medical NEEDED FOR Branch SLEEP OR TAKE HALF FOR ANXIETY hydrOXYzine 2020-0 Yes TAKE ONE Un ishmael 25 mg 6-14 TABLET BY ity of tablet 00:00: MOUTH AT [place] BEDTIME Medical NEEDED FOR Branch SLEEP OR TAKE HALF FOR ANXIETY hydrOXYzine 2020-0 Yes TAKE ONE Un ishmael 25 mg 6-14 TABLET BY ity of tablet 00:00: MOUTH AT [place] BEDTIME Medical NEEDED FOR Branch SLEEP OR TAKE HALF FOR ANXIETY hydrOXYzine 2020-0 Yes TAKE ONE Un ishmael 25 mg 6-14 TABLET BY ity of tablet 00:00: MOUTH AT [place] BEDTIME Medical NEEDED FOR Branch SLEEP OR TAKE HALF FOR ANXIETY hydrOXYzine 2020-0 Yes TAKE ONE Un ishmael 25 mg 6-14 TABLET BY ity of tablet 00:00: MOUTH AT [place] BEDTIME Medical NEEDED FOR Branch SLEEP OR TAKE HALF FOR ANXIETY hydrOXYzine 2020-0 Yes TAKE ONE Un ishmael 25 mg 6-14 TABLET BY ity of tablet 00:00: MOUTH AT [place] BEDTIME Medical NEEDED FOR Branch SLEEP OR TAKE HALF FOR ANXIETY hydrOXYzine 2020-0 Yes TAKE ONE Un ishmael 25 mg 6-14 TABLET BY ity of tablet 00:00: MOUTH AT [place] BEDTIME Medical NEEDED FOR Branch SLEEP OR TAKE HALF FOR ANXIETY hydrOXYzine 2020-0 Yes TAKE ONE Un ishmael 25 mg 6-14 TABLET BY ity of tablet 00:00: MOUTH AT [place] BEDTIME Medical NEEDED FOR Branch SLEEP OR TAKE HALF FOR ANXIETY hydrOXYzine 1-0 Yes TAKE ONE Un ishmael 25 mg 6-14 TABLET BY ity of tablet 00:00: MOUTH AT [place] BEDTIME Medical NEEDED FOR Branch SLEEP OR TAKE HALF FOR ANXIETY hydrOXYzine 1-0 Yes TAKE ONE Un ishmael 25 mg 6-14 TABLET BY ity of tablet 00:00: MOUTH AT [place] BEDTIME Medical NEEDED FOR Branch SLEEP OR TAKE HALF FOR ANXIETY hydrOXYzine 1-0 Yes TAKE ONE Un ishmael 25 mg 6-14 TABLET BY ity of tablet 00:00: MOUTH AT [place] BEDTIME Medical NEEDED FOR Branch SLEEP OR TAKE HALF FOR ANXIETY propranoloL 1-0 Yes TAKE ONE Un ishmael 10 mg 6-01 TABLET BY ity of tablet 00:00: MOUTH TWICE A Medical DAY FOR 1 Branch [...] ity o f mg Tab 00:00: MOUTH 00 DAILY A Medical MINERAL Branch SUPPLEMENT [...] ity o f mg Tab 00:00: MOUTH 00 DAILY A Medical MINERAL Branch SUPPLEMENT [...] ity o f mg Tab 00:00: MOUTH 00 DAILY A Medical MINERAL Branch SUPPLEMENT [...] ity o f mg Tab 00:00: MOUTH 00 DAILY A Medical MINERAL Branch SUPPLEMENT propranoloL 202-0 Yes TAKE ONE Un ishmael 10 mg [...] DAILY A Medical MINERAL Branch SUPPLEMENT propranoloL 2020- Yes TAKE ONE Un ishmael 10 mg [...] DAY FOR HEART/ BLOOD PRESSURE foLIC acid Yes TAKE ONE Uni vers 1 mg [...] DAY FOR HEART/ BLOOD PRESSURE foLIC acid Yes TAKE ONE Uni vers 1 mg [...] MOUTH [place] 00 DAILY FOR Medical MOOD. MUST Branch TAKE WITH A MEAL. buPROPion Yes TAKE [...] MOUTH [place] 00 DAILY FOR Medical MOOD. MUST Branch TAKE WITH A MEAL. buPROPion Yes TAKE [...] MOUTH [place] 00 DAILY FOR Medical MOOD. MUST Branch TAKE WITH A MEAL. buPROPion Yes TAKE [...] MOUTH [place] 00 DAILY FOR Medical MOOD. MUST Branch TAKE WITH A MEAL. buPROPion Yes TAKE [...] MOUTH [place] 00 DAILY FOR Medical MOOD. MUST Branch TAKE WITH A MEAL. buPROPion Yes TAKE [...] MOUTH [place] 00 DAILY FOR Medical MOOD. MUST Branch TAKE WITH A MEAL. buPROPion Yes TAKE ONE Univ ers XL 300 mg 3-09 TABLET BY ity o f 24 hr 00:00: MOUTH [place] tablet 00 EVERY Medical MORNING Branch FOR MOOD gabapentin Yes TAKE ONE Uni vers 300 mg 3-09 CAPSULE BY ity of capsule 00:00: MOUTH AT [place] 00 BEDTIME Medical NEEDED FOR Branch SLEEP lurasidone 0 Yes TAKE ONE Uni vers 40 mg 3-09 TABLET BY ity of tablet 00:00: MOUTH [place] 00 DAILY FOR Medical MOOD. MUST Branch TAKE WITH A MEAL. buPROPion Yes TAKE ONE Univ ers XL 300 mg 3-09 TABLET BY ity o f 24 hr 00:00: MOUTH [place] tablet 00 EVERY Medical MORNING Branch FOR MOOD gabapentin Yes TAKE ONE Uni vers 300 mg 3-09 CAPSULE BY ity of capsule 00:00: MOUTH AT [place] 00 BEDTIME Medical NEEDED FOR Branch SLEEP lurasidone 2021-0 Yes TAKE ONE Uni vers 40 mg 3-09 TABLET BY ity of tablet 00:00: MOUTH [place] 00 DAILY FOR Medical MOOD. MUST Branch TAKE WITH A MEAL. buPROPion Yes TAKE [...] MOUTH [place] 00 DAILY FOR Medical MOOD. MUST Branch TAKE WITH A MEAL. buPROPion Yes TAKE [...] MOUTH [place] 00 DAILY FOR Medical MOOD. MUST Branch TAKE WITH A MEAL. buPROPion Yes TAKE [...] MOUTH [place] 00 DAILY FOR Medical MOOD. MUST Branch TAKE WITH A MEAL. SUMAtriptan Yes INJECT [...] EXCEED 2 INJECTIONS IN 24 HOURS. SUMAtriptan 2021-0 Yes INJECT Univ ers 6 mg/0.5 mL [...] EXCEED 2 INJECTIONS IN 24 HOURS. Riboflavin 2019-08 Yes TAKE FOUR Un ishmael 100 mg Tab 2-01 TABLETS BY ity of 00:00: MOUTH [place] 00 DAILY A Medical VITAMIN Branch SUPPLEMENT Riboflavin 2019-08 Yes TAKE FOUR Un ishmael 100 mg Tab 2-01 TABLETS BY ity of 00:00: MOUTH [place] 00 DAILY A Medical VITAMIN Branch SUPPLEMENT Riboflavin 2020- Yes TAKE FOUR Un ishmael 100 mg [...] Source Systolic blood 2021-04-27 19:59:00 123 mm[Hg] [facility] Diastolic blood 2021-04-27 19:59:00 79 mm[Hg] [facility] Heart rate 2021-04-27 19:59:00 74 /min [facility] Body temperature 2021-04-27 19:59:00 36.17 [place] [facility] Respiratory rate 2021-04-27 19:59:00 18 /min [facility] Body height 2021-04-27 19:59:00 154.9 cm [facility] Body weight 2021-04-27 19:59:00 71.578 kg [facility] [place] [facility] BMI 2021-04-27 19:59:00 29.82 kg/m2 [facility] [place] [facility] Oxygen saturation in 2021-04-27 19:59:00 98 /min University of Arterial blood by [facility] Pulse oximetry Branch Systolic blood 2021-03-23 18:48:00 123 mm[Hg] Univer sity of pressure [place] [facility] [place] Diastolic blood 2021-03-23 18:48:00 75 mm[Hg] Unive rsity of pressure [place] [facility] [place] Heart rate 2021-03-23 18:48:00 70 /min [facility] [place] [facility] [place] Body temperature 2021-03-23 18:48:00 36.56 [place] [facility] Respiratory rate 2021-03-23 18:48:00 18 /min [facility] height 2021-03-23 18:48:00 154.9 cm [facility] [place] [facility] [place] Body weight 2021-03-23 18:48:00 71.578 kg [facility] [place] [facility] BMI 2021-03-23 18:48:00 29.82 kg/m2 Universi ty [facility] Medical Branch Oxygen saturation in 2021-03-23 18:48:00 99 /min University of Arterial blood by [facility] Pulse oximetry Branch Procedures Procedure Date / Time Performing Clinician Source Performed AUTHORIZATION FOR 2021-05-23 05:01:00 Doctor Unassigned, No [facility] RELEASE OF [facility] Medical Branch ASSIGNMENT OF BENEFITS 2021-04-11 18:02:12 Doctor Unassigned, No [facility] Medical Branch EXTERNAL PROVIDER 2021-03-28 05:01:00 Doctor Unassigned, No [facility] RECORDS Name Medical Branch Encounters Start End Encounter Admission Attending Care Care Encounter Source Date/Time Date/Time Type Type Clinicians Facility Department ID 2021-06-01 2021-06-01 Outpatient GIAN OTOOLE [facility] [id number] Univers 13:40:00 13:40:00 GIAN OTOOLE [id number] ity [facility] 2021-06-01 2021-06-01 Outpatient R GIAN OTOOLE [facility] [id number] Univers 13:40:00 13:40:00 XIANGLEILAJE ity [facility] 2021-05-23 2021-05-23 Orders Doctor HELDER [id number] Univers 00:00:00 00:00:00 Only Unassigned, JONATHAN [id number] [facility] [id number] [place] [phone] [facility] 009 Branch 2021-04-27 2021-04-27 Outpatient R GIAN OTOOLE [facility] [id number] Univers 15:00:00 15:08:48 [facility] 2021-04-27 2021-04-27 Office Xiang [facility] [id number] Univers 14:51:01 15:08:48 Visit Gian Granados [id number] ity [facility] [id number] [facility] [phone] [place] [id number] [facility] 2021-04-27 2021-04-27 Outpatient R GIAN OTOOLE [facility] [id number] Univers 15:00:00 15:00:00 GIAN OTOOLE [id number] [facility] 2021-04-14 2021-04-14 Outpatient R [facility] [id number] Univers 19:30:00 19:30:00 [id number] [facility] 2021-04-14 2021-04-14 Outpatient R GIAN OTOOLE [facility] [id number] Univers 19:30:00 19:30:00 [facility] 2021-04-14 2021-04-14 [employer] 1, [facility] Sleep Lab Bed [facility] [id number] Univers 15:06:03 17:36:03 Visit Gian Otoole [id number]. 10 ity [facility] [id number] [place] [id number] [facility] 193 Branch 2021-04-11 2021-04-11 Laboratory Only, Adc Test [facility] [id number] Univers 13:02:22 13:17:22 Only Gian Otoole [id number]. 10 ity of [place] [id number] [place] [id number] [facility] 353 [place] 2021-04-11 2021-04-11 Outpatient R [facility] [id number] Univers 13:15:00 13:15:00 [id number] ity [facility] 2021-04-11 2021-04-11 Outpatient R GIAN OTOOLE [facility] [id number] Univers 13:15:00 13:15:00 [facility] 2021-04-11 2021-04-11 Orders Doctor HELDER [id number] Univers 00:00:00 00:00:00 Only Unassigned, JONATHAN [id number] ity of [place] [facility] [id number] [place] [phone] [address] 2021-03-28 2021-03-28 Orders Doctor HELDER [id number] Univers 00:00:00 00:00:00 Only Unassigned, JONATHAN [id number] ity of [place] [facility] [id number] [place] [id number] [address] 2021-03-23 2021-03-23 Office Xiang [facility] [id number] Univers 13:37:10 13:57:10 Visit Gian Granados [id number] ity [place] [id number] [place] [facility] [phone] [facility] 2021-03-23 2021-03-23 Outpatient R GIAN OTOOLE [facility] [id number] Univers 13:40:00 13:40:00 GIAN OTOOLE [id number] ity [facility] 2021-03-23 2021-03-23 Outpatient GIAN SUGGS [facility] [id number] Univers 13:40:00 13:40:00 GIAN OTOOLE [facility] 2020-02-25 2020-02-25 Laboratory Lab, Adc Fam Pob I [facility] [id number] Univers 13:37:11 13:57:11 Only Marita [facility] [id number] ity [facility] [id number] [place] Professio [phone] [place] [address] Branch [address] 2020-02-25 2020-02-25 Outpatient R GEOVANNA [facility] [id number] Univers 13:40:00 13:40:00 MARITA holloway [facility] Results This patient has no known results.
[2022-03-26] MEDS ORDERED: HYDROCODONE/APAP 5/325 MG TAB ONE (01:57)
--- NOTE | 2022-03-26 03:25 | EDPHYS ---
Physician Documentation [facility] Name: Mariluz Infante Age: 31 yrs Sex: Female : 1990 Arrival Date: 03/26/2022 Time: 00:49 Bed 14 Private MD: ED Physician Garrett Velasquez HPI: 03/26 01:52 This 31 yrs old Female presents to ER via Wheelchair with complaints of Leg Injury, Leg mh7 Pain. 01:52 The patient presents with an injury, pain, that is acute. The complaints affect the mh7 left ankle, left lower leg. Context: The problem was sustained physical therapy session, resulted from twisting of the extremity, the patient can fully bear weight, the patient is able to ambulate, with mild difficulty, Problem is a result from a previous injury: Yes. fracture. Onset: The symptoms/episode began/occurred yesterday, at 12:00. Modifying factors: The symptoms are alleviated by nothing. the symptoms are aggravated by weight bearing. 01:52 Associated signs and symptoms: Pertinent negatives calf tenderness, fever, nausea, mh7 rash, swelling, vomiting, warmth, weakness. 01:52 Treatment prior to arrival includes: no previous treatment. Severity of symptoms: At 7 their worst the symptoms were moderate, yesterday, in the emergency department the symptoms have improved, moderately. 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 - Social history:: Smoking status: Patient denies any tobacco usage or history of. ROS: 01:52 Constitutional: Negative for fever, chills, and weight loss, Eyes: Negative for injury, mh7 pain, redness, and discharge, ENT: Negative for injury, pain, and discharge, Neck: Negative for injury, pain, and swelling, Cardiovascular: Negative for chest pain, palpitations, and edema, Respiratory: Negative for shortness of breath, cough, wheezing, and pleuritic chest pain, Abdomen/GI: Negative for abdominal pain, nausea, vomiting, diarrhea, and constipation, Back: Negative for injury and pain, : Negative for injury, bleeding, discharge, and swelling, Skin: Negative for injury, rash, and discoloration, Neuro: Negative for headache, weakness, numbness, tingling, and seizure, Psych: Negative for depression, anxiety, suicide ideation, homicidal ideation, and hallucinations, Allergy/Immunology: Negative for hives, rash, and allergies, Endocrine: Negative for neck swelling, polydipsia, polyuria, polyphagia, and marked weight changes, Hematologic/Lymphatic: Negative for swollen nodes, abnormal bleeding, and unusual bruising. Exam: 01:52 Head/Face: Normocephalic, atraumatic. Eyes: Pupils equal round and reactive to light, 7 extra-ocular motions intact. Lids and lashes normal. Conjunctiva and sclera are non-icteric and not injected. Cornea within normal limits. Periorbital areas with no swelling, redness, or edema. Skin: Warm, dry with normal turgor. Normal color with no rashes, no lesions, and no evidence of cellulitis. Neuro: Awake and alert, GCS 15, oriented to person, place, time, and situation. Cranial nerves II-XII grossly intact. Motor strength 5/5 in all extremities. Sensory grossly intact. Cerebellar exam normal. Normal gait. Psych: Awake, alert, with orientation to person, place and time. Behavior, mood, and affect are within normal limits. 01:52 Constitutional: The patient appears in no acute distress, alert, awake, uncomfortable. Vital Signs: 00:59 BP 108 / 78; Pulse 91; Resp 20; Pulse Ox 99% ; Height 5 ft. 1 in. (154.94 cm); Pain kl 10/10; 01:06 Temp 98.0(O); kl 03:30 BP 114 / 93; Pulse 74; Resp 20; Pulse Ox 97% ; vc1 MDM: 03:22 Differential diagnosis: dislocation, closed fracture, contusion, tendonitis, sprain. [facility] Data reviewed: vital signs, nurses notes, radiologic studies, plain films. Data interpreted: Pulse oximetry: on room air is 99 %. Interpretation: normal. Counseling: I had a detailed discussion with the patient and/or guardian regarding: the historical points, exam findings, and any diagnostic results supporting the discharge/admit diagnosis, radiology results, the need for outpatient follow up, a orthopedic surgeon, to return to the emergency department if symptoms worsen or persist or if there are any questions or concerns that arise at home. Response to treatment: the patient's symptoms have resolved after treatment, the patient's blood pressure is in an acceptable range, mental status has returned to baseline, the patient no longer shows bradycardia, the patient is not short of breath, the patient is not tachycardic, the patient's pain is gone, the patient's temperature has normalized, the patient is now symptom free. 03:25 Patient medically screened. [facility] 03/26 01:30 Order name: Tib Fib Left XRAY [facility] 03/26 01:30 Order name: Ankle Left 3 View XRAY 7 03/26 01:30 Order name: Foot Left 3 View XRAY [facility] Administered Medications: 01:52 Not Given (Physician Discretion): Tylenol 1000 mg PO once vc1 01:52 Drug: [place] (HYDROcodone-acetaminophen) 5 mg-325 mg 1 tabs Route: PO; vc1 03:23 Follow up: Response: No adverse reaction; RASS: Alert and Calm (0) vc1 Disposition Summary: 03/26/22 03:25 Discharge Ordered Location: Home [facility] Problem: new [facility] Symptoms: have improved [facility] Condition: Stable [facility] Diagnosis - Sprain, Left Ankle, Healing Left distal fibula fracture [facility] Followup: [facility] - With: Private Physician - When: 1 - 2 days - Reason: Worsening of condition, Recheck today's complaints, Continuance of care, Re-evaluation by your physician Followup: [facility] - With: Girish Stevens MD - When: 2 - 3 days - Reason: Worsening of condition, Recheck today's complaints Discharge Instructions: - Discharge Summary Sheet [facility] - Ankle Sprain, [id number] [facility] Forms: - Medication Reconciliation Form [facility] - Thank You Letter [facility] - Antibiotic Education [facility] - Prescription Opioid Use [facility] Prescriptions: - ketorolac 10 mg Oral tablet - take 1 tablet by ORAL route every 6 hours As needed not to exceed 40mg in 24hrs [facility] for up to 5 days total use; 15 tablet; Refills: 0, Product Selection Permitted Signatures: Dispatcher [employer] Milagros Mckinney, RN RN Garrett Jain MD MD [facility] Sahara Soto RN RN vc1
--- NOTE | 2022-03-26 03:25 | ER ---
Nurse's Notes [facility] Name: Mariluz Infante Age: 31 yrs Sex: Female : 1990 Arrival Date: 03/26/2022 Time: 00:49 Bed 14 Private MD: Diagnosis: Sprain, Left Ankle, Healing Left distal fibula fracture Presentation: 03/26 00:59 Chief complaint: Patient states: left lower leg pain after twisitng it while walking pt kl reports broke same leg in December [facility] reports leg has not healed from previous break. Coronavirus screen: Vaccine status: Patient reports receiving the 2nd dose of the covid vaccine. Ebola Screen: Patient negative for fever greater than or equal to 101.5 degrees Fahrenheit, and additional compatible Ebola Virus Disease symptoms. Initial Sepsis Screen: Does the patient meet any 2 criteria? No. Patient's initial sepsis screen is negative. Does the patient have a suspected source of infection? No. Patient's initial sepsis screen is negative. Risk Assessment: Do you want to hurt yourself or someone else? Patient reports no desire to harm self or others. Onset of symptoms was March 25, 2022 at 22:30. 00:59 Method Of Arrival: Wheelchair kl 00:59 Acuity: ROGELIO 3 kl Triage Assessment: 01:04 General: Appears distressed, uncomfortable, Behavior is anxious, crying. Pain: kl Complains of pain in left boucher and anterior aspect of left ankle Pain currently is 10 out of 10 on a pain scale. Musculoskeletal: Parent/caregiver report the patient having pain and numbness to left lower extremity. Injury Description: pt reports felt a pop in left lower extremity. TALENT ANALYST: 01:06 LMP N/A - Hysterectomy kl Historical: - Allergies: 01:03 Prednisone; kl 01:03 steriod cream - unknown name; kl - Home Meds: 01:03 clonazepam 0.5 mg Oral tab as needed [Active]; gabapentin 300 mg Oral cap daily kl [Active]; Wellbutrin 75 mg Oral tab 2 tabs daily [Active]; - PMHx: 01:03 Anxiety; Depression; Arthritis; Endometriosis; Migraines; PTSD; kl - PSHx: 01:03 left foot; right foot; right knee; Tonsillectomy; Total abdominal hysterectomy; kl - Immunization history:: Adult Immunizations up to date. - Social history:: Smoking status: Patient denies any tobacco usage or history of. Screenin:15 Abuse screen: Denies threats or abuse. Nutritional screening: No deficits noted. vc1 Tuberculosis screening: No symptoms or risk factors identified. Fall Risk None identified. Assessment: 01:15 Reassessment: See triage assessment. vc1 03:38 Reassessment: No changes from previously documented assessment. Patient is alert, vc1 oriented x 3, equal unlabored respirations, skin warm/dry/pink. General: Behavior is crying, uncooperative, Pt stated that "the healthcare is failing women and you as a woman should be mad." Asked patient if she would like a wheelchair she stated "NO I will walk out". Vital Signs: 00:59 BP 108 / 78; Pulse 91; Resp 20; Pulse Ox 99% ; Height 5 ft. 1 in. (154.94 cm); Pain kl 10/10; 01:06 Temp 98.0(O); kl 03:30 BP 114 / 93; Pulse 74; Resp 20; Pulse Ox 97% ; vc1 ED Course: 00:49 Patient arrived in ED. bp1 01:03 Triage completed. kl 01:15 Arm band placed on right wrist. vc1 01:19 Garrett Velasquez MD is Attending Physician. mh7 02:34 Foot Left 3 View XRAY In Process Unspecified. EDMS 02:34 Ankle Left 3 View XRAY In Process Unspecified. EDMS 02:34 Tib Fib Left XRAY In Process Unspecified. EDMS 03:22 No provider procedures requiring assistance completed. Patient did not have IV access vc1 during this emergency room visit. 03:23 Patient has correct armband on for positive identification. Bed in low position. vc1 03:24 Girish Stevens MD is Referral Physician. mh7 Administered Medications: 01:52 Not Given (Physician Discretion): Tylenol 1000 mg PO once vc1 01:52 Drug: [place] (HYDROcodone-acetaminophen) 5 mg-325 mg 1 tabs Route: PO; vc1 03:23 Follow up: Response: No adverse reaction; RASS: Alert and Calm (0) vc1 Medication: 03:22 VIS not applicable for this client. vc1 Outcome: 03:23 Condition: good vc1 03:25 Discharge ordered by . mh7 03:40 Discharged to home ambulatory. vc1 03:40 Discharge instructions given to patient, significant other, Instructed on discharge instructions, follow up and referral plans. medication usage, Demonstrated understanding of instructions, follow-up care, medications, Prescriptions given X 1. 03:41 Patient left the ED. vc1 Signatures: Dispatcher [employer] EDMS Milagros Hart, Joellen Starr RN, Maurice, MD MD [facility] Sahara Soto RN RN vc1
[2022-03-26 03:46] VITALS: BP 108/78; O2SAT 99
[2022-03-26 03:50] VITALS: TEMP 98
--- NOTE | 2022-03-27 11:21 | RAD REPORT ---
EXAM DESCRIPTION: RAD - Tib Fib Left - 03/26/2022 2:32 am CLINICAL HISTORY: 31 years Female PAIN TECHNIQUE: 2 x-ray views of the left tibia-fibula were performed on 03/26/2022 at 2:25 AM. COMPARISON: Previous left foot and ankle report from 01/09/2022. The images were unavailable for revi ew FINDINGS: There is a healing fracture through the distal left fibula. There are remote postsurgical changes involving the head of the first metatarsal. There is no evidence of acute fracture or disloca tion. No lytic or sclerotic bone lesions are identified. There are no significant degenerative or art hritic changes. Bone mineralization is normal. No acute soft tissue abnormalities are identified. IMPRESSION: 1. Healing fracture through the distal left fibula. 2. Remote postsurgical changes involving the head of the first metatarsal. 3. No acute osseous abnormalities are identified. Electronically signed by: Juana Moran DO 03/26/2022 3:11 AM CDT Due to temporary technical issues with the PACS/Fluency reporting system, reports are being signed by the in house radiologists without review as a courtesy to insure prompt reporting. The interpreting radiologist is fully responsible for the content of the report.
--- NOTE | 2022-03-27 11:31 | RAD REPORT ---
EXAM DESCRIPTION: RAD - Ankle Left 3 View - 03/26/2022 2:32 am CLINICAL HISTORY: 31 years Female PAIN TECHNIQUE: Three x-ray views of the left ankle were performed on 03/26/2022 at 2:13 AM. COMPARISON: Previous left ankle report from 01/09/2022. The images were unavailable for review FINDINGS: There is a healing fracture of the distal left fibula. No acute fracture is identified. Th e ankle joint is intact. No lytic or sclerotic bone lesions are identified. No significant arthritic or degenerative changes are noted. Bone mineralization is normal. No acute soft tissue abnormalities are identified. IMPRESSION: Healing fracture of the distal left fibula. No evidence of acute osseous injury. Electronically signed by: Juana Moran DO 03/26/2022 3:08 AM CDT Due to temporary technical issues with the PACS/Fluency reporting system, reports are being signed by the in house radiologists without review as a courtesy to insure prompt reporting. The interpreting radiologist is fully responsible for the content of the report.
--- NOTE | 2022-03-27 11:40 | RAD REPORT ---
EXAM DESCRIPTION: RAD - Foot Left 3 View - 03/26/2022 2:32 am CLINICAL HISTORY: 31 years Female PAIN TECHNIQUE: Three x-ray views of the left foot were performed on 03/26/2022 at 1:47 AM. COMPARISON: Prior left foot report from 01/09/2022. The images were unavailable for review FINDINGS: There is an old partially healed fracture through the distal fibula. There are remote post surgical changes involving the head of the first metatarsal. There is no evidence of acute fracture o r dislocation. No pathologic lytic or sclerotic bone lesions are seen. No significant arthritic or de generative changes are noted. Bone mineralization is normal. No acute soft tissue abnormalities are identified. IMPRESSION: No evidence of acute osseous injury involving the left foot. There is an old partially h ealed fracture through the distal fibula and there are remote postsurgical changes of the distal firs t metatarsal. Electronically signed by: Juana Moran DO 03/26/2022 3:07 AM CDT Due to temporary technical issues with the PACS/Fluency reporting system, reports are being signed by the in house radiologists without review as a courtesy to insure prompt reporting. The interpreting radiologist is fully responsible for the content of the report. N
== END 2022-03-26 03:41 | disposition home or self-care (01) ==
LOC: ER 00:45
DX: S93.402A Sprain of unspecified ligament of left ankle, initial encounter (principal); S82.832D Other fracture of upper and lower end of left fibula, subsequent encounter for closed fracture with routine healing; Z88.8 Allergy status to other drugs, medicaments and biological substances
CPT/HCPCS: 99284